=== PATIENT | female | born 1940 | race Caucasian/White ===

== ENCOUNTER → 2018-04-15 | Outpatient (CLI) | payer OTHER ==
[~2018-04-15] MED LIST: ASPIRIN EC325 M1 PO; ASPIRIN325 PO; KEFLEX500 MG PO; LEVEMIR SUBQ; LEVOTHYROXINE0.05 MG PO; LISINOPRIL20 MG PO; LOPRESSOR 50 MG50 M1; LOPRESSOR25 PO; LOVASTAT20 PO; MEDROL DOSPAK21 TA1 PO; METFORMIN HCL500 MG PO; MINOCIN100 MG PO; PAXIL30 MG PO; PLAVIX 75 MG TA75 M1 PO; PROAIR HFA8.5 GM; TOPROL XL50 MG PO; TRIAMTERENE-HC1 EAC1; VENTOLIN HFA INH8 GM IH; [UNRECOGNIZED DRUG - OTHER] PO; [UNRECOGNIZED DRUG - REMARK] PO
== END ==
LOC: M.RAD 08:51
DX: Z12.31 Encounter for screening mammogram for malignant neoplasm of breast (principal); I10 Essential (primary) hypertension; E78.00 Pure hypercholesterolemia, unspecified; E11.9 Type 2 diabetes mellitus without complications

== ENCOUNTER → 2019-02-12 | Outpatient (CLI) | payer OTHER | LOC: M.RAD 14:37 | DX: M17.12 Unilateral primary osteoarthritis, left knee (principal); M25.462 Effusion, left knee; M76.9 Unspecified enthesopathy, lower limb, excluding foot ==

== ENCOUNTER → 2019-05-05 | Outpatient (CLI) | payer OTHER | LOC: M.RAD 09:06 | DX: Z12.31 Encounter for screening mammogram for malignant neoplasm of breast (principal) ==

== ENCOUNTER → 2019-09-23 | Outpatient (CLI) | payer OTHER | LOC: M.RAD 13:58 | DX: M81.0 Age-related osteoporosis without current pathological fracture (principal); S32.10XA Unspecified fracture of sacrum, initial encounter for closed fracture; X58.XXXA Exposure to other specified factors, initial encounter; Y93.89 Activity, other specified; Y92.89 Other specified places as the place of occurrence of the external cause; Y99.8 Other external cause status ==

== ENCOUNTER 2019-10-22 15:07 | Inpatient (IN) | payer OTHER ==
[~2019-10-22] VITALS: Ht 157.5 cm; Wt 63.5 kg
--- NOTE | ~2019-10-22 | PROC ---
[address] [address] PROCEDURE REPORT Name: GERBER FOSTER Room: [address] IN M.R.#: [id number] Admission: 10/22/19 Attend Phys: Sean Cernshaw Discharge: Date of : 40 Report #: [id number] THIS REPORT FOR: //name// cc: Simon Davison Russell J. DO ~ THIS REPORT FOR: //name// For GI report, please see the Provation report in Perceptive 7 content. By: [facility]7Medical Records Staff ALECIA /TINO
--- NOTE | ~2019-10-22 | PROC ---
[address] [address] PROCEDURE REPORT Name: GERBER FOSTER Room: [address] IN M.R.#: [id number] Admission: 10/22/19 Attend Phys: Sean Crenshaw Discharge: Date of : 40 Report #: [id number] THIS REPORT FOR: //name// cc: Simon Davison Russell J. DO ~ THIS REPORT FOR: //name// For GI report, please see the Provation report in Perceptive 7 content. By: [facility]6Medical Records Staff ALECIA /TINO
[~2019-10-22 15:07] MED LIST changes: -LEVOTHYROXINE0.05 MG PO; +LEVOXYL50 MCG PO
[2019-10-22 15:15] VITALS: BP 198/105
[2019-10-22 15:40] LABS: URINE BILIRUBIN NEGATIVE (Negative); URINE BLOOD 3+ (Negative); URINE COLOR YELLOW; URINE GLUCOSE-RANDOM NEGATIVE (Negative); URINE KETONES NEGATIVE (Negative); URINE LEUKOCYTES-REFLEX TRACE (Negative); URINE NITRITE-REFLEX NEGATIVE (Negative); URINE PROTEIN NEGATIVE (Negative)
[2019-10-22 15:42] LABS: URINE CLARITY HAZY
[2019-10-22 15:54] LABS: ABSOLUTE BASOPHILS 0.1 thou/uL (0.0-0.2); ABSOLUTE EOSINOPHILS 0.2 thou/uL (0.0-0.7); ABSOLUTE LYMPHOCYTES 2.9 thou/uL (0.8-5.3); ABSOLUTE MONOCYTES 1.2 thou/uL (0.0-1.2); ABSOLUTE NEUTROPHILS 9.9 thou/uL (1.6-8.1); EOSINOPHILS 1.2 %; LYMPHOCYTES 20.5 %; MCH 31.4 pg (26.0-34.0); MCHC 33.3 g/dL (28.0-37.0); MCV 94.3 fL (80.0-100.0); MONOCYTES 8.1 %; MPV 9.7 fl. (7.2-11.1); NUCLEATED RBCS 0 /100WBC; PLATELET COUNT* 365 thou/uL (150-400); POLYS 69.2 %; RBC 3.82 mil/uL (4.20-5.00); RDW-CV 14.9 % (10.5-14.5); WBC 14.4 thou/uL (4.0-11.0)
[2019-10-22 16:01] LABS: BACTERIA-REFLEX None Seen /HPF (None Seen); SQUAMOUS 0-3 Few /LPF (0-3); URINE RBC 0-2 Rare /HPF (0-2); URINE WBC-REFLEX 0-5 Rare /HPF (0-5)
[2019-10-22 16:02] LABS: CASTS None Seen /LPF (None Seen); CRYSTALS None Seen /LPF (None Seen)
[2019-10-22 16:07] LABS: APTT 27.4 Seconds (25.0-31.3); PROTIME 10.2 Seconds (9.20-11.50)
[2019-10-22 16:10] LABS: CALCIUM 8.6 mg/dL (8.5-10.1); CREATININE 0.9 mg/dL (0.6-1.3); POTASSIUM 3.8 mmol/L (3.5-5.1)
[2019-10-22 16:15] LABS: ALBUMIN 3.5 g/dL (3.4-5.0); TOTAL BILIRUBIN 0.3 mg/dL (<0.1-1.0); TOTAL PROTEIN 7.3 g/dL (6.4-8.2)
--- NOTE | 2019-10-22 18:35 | NUR ---
ER ADMIT TO RM 210 PATIENT TO RM VIA CART TELEPHONE REPORT GIVEN PRIOR TO ARRIVAL PATIENT ORIENTED TO ROOM AND CALL LIGHT
[2019-10-22 18:39] VITALS: BP 147/92
[2019-10-22 20:00] VITALS: BP 157/77
--- NOTE | 2019-10-22 20:00 | NUR ---
RECEIVED REPORT AND ASSUMED CARE OF PT, ASSESSMENT COMPLETED. PT VERY [place] WITH HEARING AIDS IN. TELEMETRY ON SHOWING SR. SEE ADMISSION ASSESSMENT AND HX. WILL CONT TO MONITOR AND ASSIST NEEDED.
[2019-10-22 23:59] VITALS: BP 152/82
[2019-10-23] VITALS (7 sets, daily range): BP systolic 143–203; BP diastolic 75–93
[2019-10-23 04:26] LABS: ABSOLUTE BASOPHILS 0.1 thou/uL (0.0-0.2); ABSOLUTE EOSINOPHILS 0.3 thou/uL (0.0-0.7); ABSOLUTE LYMPHOCYTES 3.2 thou/uL (0.8-5.3); ABSOLUTE MONOCYTES 0.9 thou/uL (0.0-1.2); ABSOLUTE NEUTROPHILS 5.7 thou/uL (1.6-8.1); BASOPHILS 0.6 %; EOSINOPHILS 2.6 %; HEMATOCRIT 27.9 % (37.0-47.0); LYMPHOCYTES 31.2 %; MCH 31.3 pg (26.0-34.0); MCHC 33.1 g/dL (28.0-37.0); MCV 94.5 fL (80.0-100.0); MONOCYTES 9.3 %; MPV 9.7 fl. (7.2-11.1); NUCLEATED RBCS 0 /100WBC; POLYS 56.3 %; RBC 2.96 mil/uL (4.20-5.00); WBC 10.1 thou/uL (4.0-11.0)
[2019-10-23 04:45] LABS: HEMOGLOBIN 9.3 gm/dL (12.0-15.0); PLATELET COUNT* 284 thou/uL (150-400)
[2019-10-23 06:07] LABS: ALBUMIN 2.7 g/dL (3.4-5.0); CALCIUM 8.2 mg/dL (8.5-10.1); CREATININE 0.8 mg/dL (0.6-1.3); POTASSIUM 3.6 mmol/L (3.5-5.1); TOTAL BILIRUBIN 0.5 mg/dL (<0.1-1.0); TOTAL PROTEIN 5.6 g/dL (6.4-8.2)
--- NOTE | 2019-10-23 06:49 | NUR ---
AWAKE MOST OF NIGHT. VOICED NO COMPLAINTS. HAD 3 SM BM TONIGHT WITH BRIGHT RED BLEEDING NOTED. NOTED HGB DECREASED TO 9.6. TELEMETRY ON SHOWING SR. GAIT STEADY TO AND FROM BR. HS GOALS OF REST AND SAFETY ACHIEVED. HOURLY ROUNDING OBSERVED.
--- NOTE | 2019-10-23 09:28 | EKG ---
[place] [address] ELECTROCARDIOGRAM REPORT Name: GERBER FOSTER Room: [address] ADM IN M.R.#: [id number] Admission: 10/22/19 Attend Phys: Eric Weaver Discharge: Date of : 40 Date of Service: 10/22/19 1517 Report #: [id number] THIS REPORT FOR: //name// [facility] ED Test Date: 2019-10-22 Test Time: 15:17:27 Pat Name: GERBER FOSTER Department: Room: [facility] Gender: F Wrapper Layer: LUIS : 1940 Requested By: Melanie Montoya Order Number: [id number] MD: Maulik Davila Measurements Intervals [place] Rate: 101 P: 93 RI: 185 QRS: -34 QRSD: 93 T: 126 QT: 353 QTc: 458 Interpretive Statements Sinus tachycardia Probable left atrial enlargement Abnormal R-wave progression, early transition LVH with secondary repolarization abnormality Anterior Q waves, possibly due to LVH Compared to ECG 04/24/2016 12:11:53 Q waves now present Sinus rhythm no longer present Electronically Signed On 10-23-2019 9:26:34 CDT by Maulik Davila [email or web address] <ELECTRONICALLY SIGNED> By: Maulik Davila MD, [facility] 10/23/19 0926 1517 1517 Maulik Davila MD, [facility] /EPI
[2019-10-23 10:04] LABS: HEMATOCRIT 26.3 % (37.0-47.0); MCH 31.8 pg (26.0-34.0); MCV 93.6 fL (80.0-100.0); MPV 9.9 fl. (7.2-11.1); RBC 2.81 mil/uL (4.20-5.00); RDW-CV 14.7 % (10.5-14.5); WBC 9.6 thou/uL (4.0-11.0)
--- NOTE | 2019-10-23 11:02 | NUR ---
assumed pt care report received from nurse pt is aox4. hard of hearing. on ra. vss. pt denies pain. protonix drip infusing at 20 per hour as ordered. accucheck. pt is npo. gi consulted as ordered. egd scheduled at 1300. hgb lab 9.0. will continue to monitor lab. consent for egd obtained from pt at bedside. anesthesiologist consulted. will continue to monitor pt.
--- NOTE | 2019-10-23 15:06 | NUR ---
Pt lives at home alone and sons are supportive. Pt is [place]. Pt has hx of HH with [facility]. SW/CM to continue to follow to assist with safe dc planning.
--- NOTE | 2019-10-23 16:10 | NUR ---
PT RETURNED FROM EGD AT AROUND 1430. PT HELPED TO BEDSIDE COMMODE. NPO STATUS REMOVED. FRESH WATER PROVIDED. ELECTROLYTE GOLYTELY STARTED ORDERED. IV FLUID HANGED. IV ANTIBIOTIC HANGED. CONSENT FOR COLONOSCOPY OBTAINED FORM PATIENT. PT DENIES PAIN. NO BLEEDING NOTED. PROTONIX STOPPED ORDERED. ACCUCHECK. CALL LIGHT WITHIN REACH. WILL CONTINUE TO MONITOR
--- NOTE | 2019-10-23 17:41 | NUR ---
pt started passing bright red liquid stool post GI cocktail intake. this nurse is concerned about the patient's hgb and communicated to hospitalist about possible H&H order for tonight to monitor hgb. WIll continue to monitor pt
--- NOTE | 2019-10-23 17:43 | NUR ---
patient;s BP 190s. hydralizine given. will recheck BP
--- NOTE | 2019-10-23 19:01 | NUR ---
BP RECHECKED . SEE CHART
[2019-10-23 21:23] LABS: HEMATOCRIT 27.6 % (37.0-47.0); HEMOGLOBIN 9.2 gm/dL (12.0-15.0)
[2019-10-24] VITALS (7 sets, daily range): BP systolic 104–182; BP diastolic 52–94
[2019-10-24 09:09] LABS: ABSOLUTE BASOPHILS 0.1 thou/uL (0.0-0.2); ABSOLUTE EOSINOPHILS 0.3 thou/uL (0.0-0.7); ABSOLUTE NEUTROPHILS 4.2 thou/uL (1.6-8.1); BASOPHILS 0.9 %; EOSINOPHILS 3.5 %; HEMATOCRIT 23.5 % (37.0-47.0); HEMOGLOBIN 7.9 gm/dL (12.0-15.0); LYMPHOCYTES 35.2 %; MCH 31.8 pg (26.0-34.0); MCHC 33.6 g/dL (28.0-37.0); MCV 94.5 fL (80.0-100.0); MONOCYTES 11.5 %; MPV 9.5 fl. (7.2-11.1); NUCLEATED RBCS 0 /100WBC; PLATELET COUNT* 286 thou/uL (150-400); POLYS 48.9 %; RBC 2.49 mil/uL (4.20-5.00); WBC 8.7 thou/uL (4.0-11.0)
[2019-10-24 09:29] LABS: CALCIUM 7.8 mg/dL (8.5-10.1); CREATININE 0.9 mg/dL (0.6-1.3); POTASSIUM 3.6 mmol/L (3.5-5.1); TOTAL BILIRUBIN 0.3 mg/dL (<0.1-1.0); TOTAL PROTEIN 5.7 g/dL (6.4-8.2)
--- NOTE | 2019-10-24 12:44 | NUR ---
assumed pt care report received from nurse pt is aox4. on ra. kept npo for colonoscopy. vss. blood pressure medication given. pt left at 11:30 for colonoscopy. blood culture positive. result communicated to doctor at 1242.
--- NOTE | 2019-10-24 15:03 | NUR ---
pt back from colonoscopy. this nurse was given report that the pt had aspirated during procedure.vs taken. pt on 4 l nc. o2 saturation 97%. pt assited to the bedside commode. iv fluid administered as ordered. iv abx hanged. pt denies pain. call light within reach. food provided. diner ordered. will continue to monitor
--- NOTE | 2019-10-24 17:02 | NUR ---
wheezy sound heard in bilateral lungs. dr contacted. butt received. 2 view xray and stop fluid. fluid stopped. order for xray in. pt o2 level 96% on 4 l nc. will continue to monitor. pt has some chills but no fever.
--- NOTE | 2019-10-24 18:14 | NUR ---
provider contacted about chest xray result
--- NOTE | 2019-10-24 18:48 | NUR ---
NO MORE CHILLS. ZOSYN HANGED. MRSA SWAB OBTAINED. O2 SATURATION AT 98% ON 3 L NC NOW. TITRATING O2 DOWN
[2019-10-25] VITALS (10 sets, daily range): BP systolic 106–150; BP diastolic 54–84
--- NOTE | 2019-10-25 05:44 | NUR ---
ASSUMED PT CARE AT APPROX 1930. PT IS AWAKE AND ORINTED X4. BOARD MACHINE SET UP OPERATOR IS TRACING SR. ASSESSMENT DONE AND CHARTE. PT C/O NAUSEA AND LIGHTHEADEDNESS. BLOOD GLUCOSE 115, SYMPTOMS RELIEVED BY ZOFRAN GIVEN PER MAR.PT IS ABLE TO SLEEP SOME. NO ACUTE CHANGES OVERNIGHT. CALL LIGHT WITHIN REACH. HOURLY ROUNDING DONE FOR PT SAFETY.
[2019-10-25 05:50] LABS: HEMATOCRIT 21.1 % (37.0-47.0); MCH 31.3 pg (26.0-34.0); MCHC 33.3 g/dL (28.0-37.0); MCV 93.9 fL (80.0-100.0); MPV 9.2 fl. (7.2-11.1); NUCLEATED RBCS 0 /100WBC; PLATELET COUNT* 271 thou/uL (150-400); RBC 2.25 mil/uL (4.20-5.00); RDW-CV 14.8 % (10.5-14.5); WBC 20.7 thou/uL (4.0-11.0)
[2019-10-25 06:24] LABS: ALBUMIN 2.6 g/dL (3.4-5.0); CALCIUM 7.4 mg/dL (8.5-10.1); CREATININE 1.2 mg/dL (0.6-1.3); TOTAL BILIRUBIN 0.8 mg/dL (<0.1-1.0); TOTAL PROTEIN 5.5 g/dL (6.4-8.2)
[2019-10-25 06:27] LABS: POTASSIUM 2.9 mmol/L (3.5-5.1)
[2019-10-25 07:00] LABS: ABSOLUTE EOSINOPHILS 0.4 thou/uL (0.0-0.7); ABSOLUTE MONOCYTES 1.2 thou/uL (0.0-1.2); PLATELET ESTIMATE ADEQUATE
--- NOTE | 2019-10-25 11:10 | NUR ---
BLOOD CHECKED AT BEDSIDE WITH CLEMENTINA HARKINS.
--- NOTE | 2019-10-25 13:25 | NUR ---
WENT OVER AMA FORM WITH PATIENT AND ANSWERED ALL QUESTIONS. PT SIGNED AMA FORM AND WILL BE ESCORTED OFF HOSPITAL PROPERTY.
--- NOTE | 2019-10-25 13:51 | NUR ---
CONTACT PT'S SON DEVAN TO GIVE UPDATE PER REQUEST.
[2019-10-25 16:08] LABS: HEMATOCRIT 23.4 % (37.0-47.0); HEMOGLOBIN 7.9 gm/dL (12.0-15.0)
[2019-10-25 16:11] LABS: CALCIUM 7.4 mg/dL (8.5-10.1); CREATININE 1.4 mg/dL (0.6-1.3); POTASSIUM 3.7 mmol/L (3.5-5.1)
--- NOTE | 2019-10-25 17:27 | NUR ---
PT ATE ALL OF MEALS TODAY. REPLACED POTASSIUM PO AND RECHECK IS AT NORMAL LEVELS. PT HAD 1 UNIT PRBCS. WILL CONTINUE TO ASSESS.
[2019-10-26] VITALS (7 sets, daily range): BP systolic 132–161; BP diastolic 74–748
[2019-10-26 04:33] LABS: ABSOLUTE BASOPHILS 0.1 thou/uL (0.0-0.2); ABSOLUTE EOSINOPHILS 0.8 thou/uL (0.0-0.7); ABSOLUTE LYMPHOCYTES 2.6 thou/uL (0.8-5.3); ABSOLUTE MONOCYTES 1.3 thou/uL (0.0-1.2); ABSOLUTE NEUTROPHILS 9.6 thou/uL (1.6-8.1); BASOPHILS 0.5 %; EOSINOPHILS 5.7 %; HEMOGLOBIN 8.8 gm/dL (12.0-15.0); MCH 30.7 pg (26.0-34.0); MCHC 32.7 g/dL (28.0-37.0); MCV 93.9 fL (80.0-100.0); MONOCYTES 9.1 %; MPV 9.8 fl. (7.2-11.1); NUCLEATED RBCS 0 /100WBC; PLATELET COUNT* 301 thou/uL (150-400); POLYS 66.7 %; RBC 2.88 mil/uL (4.20-5.00); RDW-CV 16.2 % (10.5-14.5); WBC 14.4 thou/uL (4.0-11.0)
[2019-10-26 04:58] LABS: ALBUMIN 2.7 g/dL (3.4-5.0); CALCIUM 8.2 mg/dL (8.5-10.1); CREATININE 1.3 mg/dL (0.6-1.3); POTASSIUM 3.7 mmol/L (3.5-5.1); TOTAL PROTEIN 6.2 g/dL (6.4-8.2)
--- NOTE | 2019-10-26 05:42 | NUR ---
ASSUMED CARE OF PT AFTER REPORT AT 1930. PT A&OX4. VSS. PHYSICAL ASSESSMENT COMPLETED AND CHARTED. PT ON O2AT 2L NC-ON CONT PULSE OX. PT TRACING SR ON TELE. PT UP STANDBY TO BSC. PT DENIES ANY PAIN OR DISCOMFORT. FALL PRECAUTIONS IN PLACE. ABLE TO SLEEP WELL ON BED. CALL LIGHT WITHIN REACH.
[2019-10-26 10:37] LABS: CHOLESTEROL 107 mg/dL (<200); HDL CHOLESTEROL 40 mg/dL (>40); LDL CHOLESTEROL 48 mg/dL (<100); SERUM ASSESSMENT Clear; TC:HDL 2.7 Ratio (Not establshd); TRIGLYCERIDE 98 mg/dL (<150); VLDL 20 mg/dL (<40)
--- NOTE | 2019-10-26 12:08 | NUR ---
Pt discharging to home today, [facility]
--- NOTE | 2019-10-26 16:12 | 2DMMODE ---
[place] [address] 2 D/M-MODE ECHOCARDIOGRAM Name: GERBER FOSTER Room: [address] IN [facility]#: [id number] Admission: 10/22/19 Attend Phys: Eric Weaver Discharge: Date of : 40 Date of Service: 10/26/19 1610 Report #: [id number] THIS REPORT FOR: cc: Simon Davison,Simon Pelaez,Rashid Tapia MD [facility] ~ APPROVED REPORT Study performed: 10/26/2019 13:48:50 EXAM: Comprehensive 2D, Doppler, and color-flow Echocardiogram Patient Location: In-Patient Room #: 210 Status: routine BSA: 1.64 HR: 74 bpm BP: 158/83 mmHg Rhythm: NSR Other Information Study Quality: Good Indications CVA/TIA Echo Enhancing Agent Indication: Rule out Shunt Agent(s) / Amount(s) Used: Agitated Saline 10 cc 2D Dimensions IVSd: 13.45 (7-11mm) LVOT Diam: 20.04 (18-24mm) LVDd: 42.85 mm PWd: 10.15 (7-11mm) Ascending Ao: 36.73 (22-36mm) LVDs: 35.54 (25-40mm) Aortic Root: 37.00 mm Volumes Left Atrial Volume (Systole) LA ESV Index: 32.10 mL/m2 Aortic Valve AoV Peak Lester.: 1.32 m/s AO Peak Gr.: 6.97 mmHg LVOT Max P.61 mmHg AO Mean Gr.: 3.67 mmHg LVOT Mean P.[place] [address] 2 D/M-MODE ECHOCARDIOGRAM Name: CRISTIANGERBER ÓSCAR Room: [address] IN ..#: [id number] Admission: 10/22/19 Attend Phys: Eric Weaver Discharge: Date of : 40 Date of Service: 10/26/19 1610 Report #: [id number] LVOT Max V: 0.95 m/s AO V2 VTI: 25.46 cm LVOT Mean V: 0.59 m/s GLEN (VTI): 2.64 cm2 LVOT V1 VTI: 21.29 cm AI Van Zandt: 1.29 m/s2 AI PHT: 594.27 ms Mitral Valve E/A Ratio: 1.12 MV Decel. Time: 147.11 ms MV E Max Lester.: 1.20 m/s MV PHT: 42.66 ms MVA (PHT): 5.16 cm2 TDI E/Lateral E': 15.00 E/Medial E': 17.14 Medial E' Lester.: 0.07 m/s Lateral E' Lester.: 0.08 m/s Pulmonary Valve PV Peak Lester.: 0.85 m/s PV Peak Gr.: 2.89 mmHg Tricuspid Valve RAP Estimate: 5.00 mmHg TR Peak Gr.: 24.87 mmHg RVSP: 29.00 mmHg PA Pressure: 29.00 mmHg Left Ventricle The left ventricle is normal size. There is normal LV segmental wall motion. There is normal left ventricular wall thickness. Left ventricular systolic function is normal. The left ventricular ejection fraction is within the normal range. LVEF is 55%. The left ventricular diastolic function is normal. Right Ventricle The right ventricle is normal size. The right ventricular systolic function is normal. Atria The left atrium size is normal. The interatrial septum is intact with no evidence for an atrial septal defect. The right atrium size is normal. Aortic Valve The aortic valve is normal in structure. Mild aortic regurgitation. There is no [place] [address] 2 D/M-MODE ECHOCARDIOGRAM Name: GERBER FOSTER Room: [address] IN .R.#: [id number] Admission: 10/22/19 Attend Phys: Eric Weaver Discharge: Date of : 40 Date of Service: 10/26/19 1610 Report #: [id number] Mitral Valve The mitral valve is normal in structure. Mild to moderate mitral regurgitation. No evidence of mitral valve stenosis. Tricuspid Valve The tricuspid valve is normal in structure. Trace tricuspid regurgitation. No pulmonary hypertension. Pulmonic Valve The pulmonary valve is normal in structure. There is no pulmonic valvular regurgitation. Great Vessels The aortic root is normal in size. IVC is normal in size and collapses >50% with inspiration. Pericardium There is no pericardial effusion. <Conclusion> The left ventricle is normal size. There is normal left ventricular wall thickness. Left ventricular systolic function is normal. The left ventricular ejection fraction is within the normal range. LVEF is 55%. The left ventricular diastolic function is normal. The right ventricle is normal size. The left atrium size is normal. The aortic valve is normal in structure. Mild aortic regurgitation. There is no aortic valvular stenosis. The mitral valve is normal in structure. Mild to moderate mitral regurgitation. No evidence of mitral valve stenosis. The tricuspid valve is normal in structure. IVC is normal in size and collapses >50% with inspiration. There is no pericardial effusion. There is normal LV segmental wall motion. The interatrial septum is intact with no evidence for an atrial septal defect. <ELECTRONICALLY SIGNED> By: Rashid Soto MD, FACC 10/26/191609 09 09 Rashid Soto MD, FACC /INF
--- NOTE | 2019-10-26 17:13 | NUR ---
ASSUMED PT CARE REPORT RECEIVED FROM NURSE PT IS AOX4. ON 2 L NC. O2 SATURATION IS 99% ON 2 L. CONTINUOUS PULSE OX IN PLACE. PT OUT OF BED TO CHAIR WITH THIS NURSE ASSISTANCE. ACCUCHECK. NIH 0. PT LEFT FLOOR FOR MRI/MRA/ THEN PT CAME BACK. ID CONSULTED. MEDICATION CHANGED. SEE EMAR. IV LINES ARE PATENT. PT HAD A BOWEL MOVEMENT . NO BLOODY STOOL NOTED. HGB STABLE. PT WANTS TO STAY FOR ONE MORE DAY PER . PT SON NOTIFIED. OXYGEN TITRATED IN THE AFTERNOON. PT IS NOW ON ROOM AIR . LUNG SOUNDS CLEAR, NO SOB NOTED. PT WALKED IN HALLWAY WITH PHYSICAL THERAPY. PT STATES SHE FEELS BETTER TODAY. GOOD APPETITE. [facility] WILL CONTINUE TO MONITOR
[2019-10-27] VITALS (7 sets, daily range): BP systolic 154–161; BP diastolic 76–95
--- NOTE | 2019-10-27 06:15 | NUR ---
ASSUMED CARE OF PT AFTER REPORT AT 1930. PT A&OX4. VSS. PHYSICAL ASSESSMENT COMPLETED AND CHARTED. PT ON RA. PT TRACING SR ON TELE. PT UPADLIB TO RESTROOM. PT DENIES ANY PAIN OR DISCOMFORT. CALL LIGHT WITHIN REACH.
[2019-10-27 06:16] LABS: ABSOLUTE BASOPHILS 0.2 thou/uL (0.0-0.2); ABSOLUTE LYMPHOCYTES 2.4 thou/uL (0.8-5.3); ABSOLUTE MONOCYTES 1.1 thou/uL (0.0-1.2); ABSOLUTE NEUTROPHILS 11.1 thou/uL (1.6-8.1); BASOPHILS 1.2 %; EOSINOPHILS 6.1 %; HEMOGLOBIN 8.8 gm/dL (12.0-15.0); LYMPHOCYTES 15.4 %; MCH 31.8 pg (26.0-34.0); MCHC 33.8 g/dL (28.0-37.0); MPV 9.2 fl. (7.2-11.1); NUCLEATED RBCS 0 /100WBC; PLATELET COUNT* 356 thou/uL (150-400); POLYS 70.3 %; RBC 2.76 mil/uL (4.20-5.00); RDW-CV 15.8 % (10.5-14.5); WBC 15.7 thou/uL (4.0-11.0)
[2019-10-27 06:33] LABS: ALBUMIN 2.6 g/dL (3.4-5.0); CALCIUM 8.3 mg/dL (8.5-10.1); CREATININE 0.9 mg/dL (0.6-1.3); POTASSIUM 3.4 mmol/L (3.5-5.1); TOTAL BILIRUBIN 0.3 mg/dL (<0.1-1.0); TOTAL PROTEIN 6.1 g/dL (6.4-8.2)
--- NOTE | 2019-10-27 08:14 | CON ---
[address] [address] CONSULTATION Name: GERBER FOSTER Room: [address] IN M.R.#: [id number] Admission: 10/22/19 Attend Phys: Sean Crenshaw Discharge: Date of : 40 Report #: [id number] THIS REPORT FOR: //name// cc: Simon Davison Russell J. DO ~ THIS REPORT FOR: //name// CC: Simon Weaver DATE OF SERVICE: 10/26/2019 INFECTIOUS DISEASE CONSULTATION ATTENDING PHYSICIAN: Dr. Eric Weaver. REASON FOR EVALUATION: Positive blood culture with Gram-positive cocci, setting of aspiration pneumonia. HISTORY OF PRESENT ILLNESS: Chart reviewed, patient examined. 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 This prompted her admission. She did undergo evaluation including upper and lower endoscopies, which failed to identify a source. In the interim, initial chest x-ray was unremarkable; however, followup showed left basilar infiltrate and suspected aspiration pneumonitis. She is started on combination therapy. In addition to that, blood cultures were collected 1 out 2 with growth of gram-positive cocci identified as a coag-negative staph. She generally feels fine. She is still on supplemental oxygen, although claims she has not needed. She is scheduled to undergo MRI testing of her head as well as MRA evaluations. Denies any difficulty breathing at this point. She has not had a cough. No gastrointestinal related complaints. She has been afebrile. Current antimicrobials include piperacillin, tazobactam and vancomycin. ALLERGIES: None known. MEDICATIONS: Noted above the antibiotics, vancomycin and Zosyn. She is on metformin, lisinopril, paroxetine, levothyroxine, insulin glargine, atorvastatin, p.r.n. analgesics and antiemetics. PAST MEDICAL HISTORY: Includes above noted diabetes mellitus complicated by vasculopathy, previous stroke, history of asthma, hypertension, elevated cholesterol, fairly profound hearing loss. She had a previous splenectomy, hypothyroidism, [place] [address] CONSULTATION Name: GERBER FOSTER Room: [address]#: [id number] Admission: 10/22/19 Attend Phys: Sean Crenshaw Discharge: Date of : 40 Report #: [id number] SOCIAL HISTORY: Nonsmoker, no ethanol, no illicit drug use. FAMILY HISTORY: Noncontributory. REVIEW OF SYSTEMS: Otherwise, unremarkable 10-point review of systems. PHYSICAL EXAMINATION: GENERAL: She is pleasant, alert, cooperative. She has some profound hearing deficits. She is animated, appears to be somewhat chronically ill, undernourished. VITAL SIGNS: Temperature 98.3, pulse 80, respirations 18, blood pressure 158/83. SKIN: Warm, dry, no rashes. HEENT: Normocephalic. Extraocular muscles intact. She does have nasal cannula oxygen. NECK: Supple. LUNGS: Diminished breath sounds overall, few scattered crackles, primarily at the bases. HEART: Regular. I do not appreciate murmur. ABDOMEN: Soft, nontender, nondistended. EXTREMITIES: No cyanosis. GENITOURINARY: Deferred. RECTAL: Deferred. LABORATORY DATA: Prealbumin of 19.3. Most recent electrolytes; sodium 143, potassium 3.7, chloride 108, bicarbonate is 28, anion gap of 7, BUN and creatinine 8 and 1.3, glucose of 135. LFTs unremarkable. Albumin of 2.7, total protein 6.2. Estimated GFR of 40. CBC; white count of 14.4, H and H of 8.8 and 27.0, platelets of 301. She does have a monocytosis and a moderately elevated eosinophil count above the normal range at 800. PCR surveillance for MRSA was negative. Chest x-ray from 10/24/2019 showed left lung infiltrate. Blood culture 1 out 2 with growth of gram-positive cocci. ASSESSMENT: Pneumonitis in a patient that certainly, given her hospitalization procedure, is at risk. At this point, she is not apparently ill. Denies any primary respiratory complaints. Secondly, he has a positive blood culture. I think this is in all likelihood a false positive or contaminant who will pursue that diagnosis any further. We will go ahead and transition to oral antibiotics, follow her expectantly. Additional evaluation with DIETITIAN perspective is ongoing. <ELECTRONICALLY SIGNED> By: Delvin Florez MD 10/27/19 0814 [id number] Florez MD /nt
[2019-10-27] MEDS ORDERED: AUGMENTIN 875-1 EACH PO (11:29)
--- NOTE | 2019-10-27 12:46 | NUR ---
ASSUMED PT CARE REPORT RECEIVED FROM NURSE PT IS AOX4. ON RA. O2 SATURATION IS 95%. PT DENIES PAIN. NO COMPLAINT. TRACING SR ON RUNNER MAN. LUNG SOUNDS ARE CLEAR. IV LINES PATENT. DISCHARGE ORDERED. PT STATED THAT HE IS READY TO GO HOME. PATIENT'S SON WILL QUALITY FACILITATOR THIS AFTERNOON. ACCUCHECK. METFORMIN GIVEN. CALL LIGHT AT REACH. WILL CONTINUE TO MONITOR PT
--- NOTE | 2019-10-27 12:48 | NUR ---
FAXED REFERRAL AND ORDERS TO [facility]. CONFIRMED WITH ALEKSANDRA/ CHLOE THAT SHE RECEIVED AND PATIENT DISCHARGING TODAY, 10/27/19 TO HER HOME IN [place], [place]. SPOKE TO DEVAN FOSTER (SON) [phone] ABOUT [facility] CONTACTING PATIENT AND VERIFYING WITH HIM ALSO ABOUT TIME/DAY THEY PLAN ON SEEING PATIENT. HE SAID PATIENT IS HARD OF HEARING AND FOR SERVICE TO KNOCK ON WINDOW FAR LEFT OF HER DUPLEX IF PATIENT DOESN'T ANSWER DOOR. SON WILL KILN CHARGER PATIENT TODAY BETWEEN 14:30-16:30 AND WILL TAKE PATIENT TO HER OWN HOME. NOTIFIED NURSING UN[facility] OF HOME HEALTH SERVICE AND TRANSPORTATION ARRANGEMENTS. [facility] [phone]; [phone]
--- NOTE | 2019-10-27 16:53 | NUR ---
IV REMOVED AND HEART MONITOR RETRIEVED. PT PICKED UP FROM ER ENTRANCE BY HER SON DEVAN. PT LEFT FLOOR BY JOYA ACCOMPANIED BY THIS NURSE. BELONGINGS BROUGHT ALONG
--- NOTE | 2019-10-28 11:08 | PATH ---
[address] [address] PATHOLOGY RPT PROCEDURE Name: GERBER RAO ÓSCAR Room: [address] IN M.R.#: [id number] Admission: 10/22/19 Date of : 40 Discharge: 10/27/19 Report #: [id number] Path Case #: [id number] [facility] Accession Number: [id number] . 01 Material submitted: . colon - ASCENDING COLON POLYP. Modifiers: ascending . 01 Clinical history: . None provided . 02 Diagnosis: Ascending colon polyp: - Benign colonic inflammatory pseudopolyp with erosion, negative for granulomas, viral inclusions and dysplasia. (CLARITA/db; 10/27/2019) LBQ 10/27/2019 1120 Local . 02 Electronically signed: . Brock Santizo MD, Pathologist NPI- [id number] . 01 Gross description: . The specimen is received in formalin, labeled "Rao, Gerber, ascending colon polyp" and consists of a fragment chang tissue measuring 0.3 x 0.3 x 0.2 cm which is entirely submitted in A1. (SDY; 10/26/2019) SYU/SYU 10/26/2019 1248 Local . 02 Pathologist provided ICD-10: K63.5 . 02 CPT . 706714 Specimen Comment: A courtesy copy of this report has been sent to [phone] Specimen Comment: [id number] Specimen Comment: Report sent to Specimen Comment: A duplicate report has been generated due to demographic updates. Performed at: [address] [facility] [id number] [facility] [address], [place], [place] [id number] MD Simon Hall MD Phone: [phone] Performed at: [facility] [place] [address], [place], [place] [id number] MD Brock Santizo MD Phone: [phone]
--- NOTE | 2019-10-30 10:43 | CON ---
[address] [address] CONSULTATION Name: GERBER FOSTER Room: [address] IN M.R.#: [id number] Admission: 10/22/19 Attend Phys: Sean Crenshaw Discharge: 10/27/19 Date of : 40 Report #: [id number] THIS REPORT FOR: //name// cc: Simon Davison Russell J. DO ~ THIS REPORT FOR: //name// CC: Simon Weaver DATE OF SERVICE: 10/23/2019 HISTORY OF PRESENT ILLNESS: This is a pleasant 78-year-old female with past medical history significant for hypertension, stroke, diabetes who is presenting for evaluation of black tarry stool. The patient had 3 episodes yesterday. Since then, she has had no bowel movements today. The patient reports stings of red blood associated with it. The patient reports that stool was moderate in volume, colored, the toilet bowl red in color. She denies any associated abdominal pain, any nausea, vomiting and diarrhea. Few episodes of hematemesis. The patient does not report any weight loss and has not had any EGD or colonoscopy in the past. PAST MEDICAL HISTORY: Diabetes, stroke, hypercholesterolemia. PAST SURGICAL HISTORY: Remote history of splenectomy. SOCIAL HISTORY: The patient denies alcohol, smoking or recreational drug use. FAMILY HISTORY: No family history of colon cancer or August related neoplasia. REVIEW OF SYSTEMS: Comprehensive 10-point review of systems is negative except for what was mentioned in the HPI. PHYSICAL EXAMINATION: GENERAL: The patient is alert, awake, oriented x 3. HEENT: Pupils are equal, round, reactive to light and accommodation. Mucous membranes are moist. There is no congestion. LUNGS: Clear to auscultation bilaterally. CARDIOVASCULAR: Rate and rhythm regular, S1, S2 present. ABDOMEN: Soft. There is no distention, guarding or rigidity. EXTREMITIES: Warm, well perfused. There is no edema. SKIN: Warm and dry. LABORATORY DATA: Hemoglobin 9.2, hematocrit 26.3, platelet count 299, WBC count 9.6. Sodium 140, potassium 3.6, chloride 106, bicarb 23, BUN 11, creatinine 0.8, total bilirubin 0.5, AST 16, ALT 13 and alk phos 76. INR 1.0. [place] [address] CONSULTATION Name: GERBER FOSTER Room: [address]#: [id number] Admission: 10/22/19 Attend Phys: Sean Crenshaw Discharge: 10/27/19 Date of : 40 Report #: [id number] IMAGING: CT angio abdomen fails to demonstrate any active bleeding. ASSESSMENT AND PLAN: Pleasant 78-year-old female presenting with black tarry stools. No prior history of EGD or colonoscopy in the past. The patient currently is on Plavix. I would recommend Protonix 80 mg bolus followed by 8 mg per hour drip. Maintain adequate peripheral access. Keep the patient n.p.o. for possible EGD today. Further recommendations will be based on the results of the EGD. Thank you for this consultation. <ELECTRONICALLY SIGNED> By: Ambrose Elias MD 10/30/19 1043 1400 [id number] Elias MD /nt
== END 2019-10-27 16:30 | disposition home health service (06) | DRG 377 ==
LOC: M.ERS 15:07 → M.TBA-ER 17:00 → M.2W 17:00
PROVIDERS: Internal Medicine; Internal Medicine Gastroenterology; Nurse Practitioner Family; Psychiatry & Neurology Neurology; ADMIT Internal Medicine
PROC: 0DJ08ZZ Inspection of Upper Intestinal Tract, Via Natural or Artificial Opening Endoscopic (ICD-10-PCS; principal; 2019-10-23)
PROC: 0DBK8ZZ Excision of Ascending Colon, Via Natural or Artificial Opening Endoscopic (ICD-10-PCS; 2019-10-24)
PROC: 30233N1 Transfusion of Nonautologous Red Blood Cells into Peripheral Vein, Percutaneous Approach (ICD-10-PCS; 2019-10-25)
DX: K92.1 Melena (principal); J18.9 Pneumonia, unspecified organism; D62 Acute posthemorrhagic anemia; E44.0 Moderate protein-calorie malnutrition; R65.10 Systemic inflammatory response syndrome (SIRS) of non-infectious origin without acute organ dysfunction; K57.30 Diverticulosis of large intestine without perforation or abscess without bleeding; D12.2 Benign neoplasm of ascending colon; J45.909 Unspecified asthma, uncomplicated; I10 Essential (primary) hypertension; K64.9 Unspecified hemorrhoids; E78.00 Pure hypercholesterolemia, unspecified; E03.9 Hypothyroidism, unspecified; K52.9 Noninfective gastroenteritis and colitis, unspecified; E11.69 Type 2 diabetes mellitus with other specified complication; E78.5 Hyperlipidemia, unspecified; J32.0 Chronic maxillary sinusitis; Z68.25 Body mass index [BMI] 25.0-25.9, adult; Z79.84 Long term (current) use of oral hypoglycemic drugs; Z79.899 Other long term (current) drug therapy; Z79.4 Long term (current) use of insulin; Z86.73 Personal history of transient ischemic attack (TIA), and cerebral infarction without residual deficits; Z85.3 Personal history of malignant neoplasm of breast; Z90.81 Acquired absence of spleen; Z83.3 Family history of diabetes mellitus

== ENCOUNTER 2020-10-12 06:24 | Inpatient (IN) | payer OTHER ==
[~2020-10-12] VITALS: Ht 157.5 cm; Wt 68.8 kg
--- NOTE | ~2020-10-12 | EEG ---
[address] [address] EEG STUDY REPORT Name: GERBER FOSTER Room: [address] IN M.R.#: [id number] Admission: 10/12/20 Attend Phys: Wicho Schwartz MD Discharge: Date of : 40 Report #: [id number] THIS REPORT FOR: cc: Simon Davison Russell J. DO Khosla, Parveen K. MD ~ DATE OF SERVICE: 10/17/2020 This patient is being evaluated for seizure. EEG was done by placing the electrode by standard 10-20 system of electrode placement. Both referential and sequential montages were used for recording. Background activity in this patient's EEG is about 7 Hz and 30 microvolt. On the right side either, the patient has a lot of artifact or an epileptiform activity is present. The patient appeared to be drowsy during part of the EEG and that is associated with bilateral slowing. Photic stimulation is unremarkable. IMPRESSION: This is an abnormal EEG because it is a poorly formed. That is a nonspecific abnormality, which can occur with encephalopathy, effect of psychotropic medication, dementia, etc. On the right side either, a lot of artifact is present or the patient has epileptiform activity there. It might be desirable to repeat this EEG to compare after a few days. Thank you very much for this referral. By: 1825 1848MD jayjay Estrada
--- NOTE | ~2020-10-12 | CON ---
[address] [address] CONSULTATION Name: GERBER FOSTER Room: [address] ADM IN M.R.#: [id number] Admission: 10/12/20 Attend Phys: Wicho Schwartz MD Discharge: Date of : 40 Report #: [id number] THIS REPORT FOR: cc: Simon Davison Russell J. DO Khosla, Parveen K. MD ~ DATE OF SERVICE: 10/12/2020 HISTORY OF PRESENT ILLNESS: This is a 79-year-old female patient who was evaluated by me for CVA. I discussed the patient with Emergency Room physician. I tried to take the history from the patient. Emergency Room doctor and the medical student also try to take history from the patient. This patient is extremely hard of hearing. She also does not provide a good history at all. She is also a very poor historian. I reviewed the records in the computer in this patient. It looks like in 2014, she was admitted with an episode suggestive of TIA. In 2016, she was admitted with what looks like a stroke in the left cerebral hemisphere, which involved frontoparietal as well as occipital area as per the report. She needed speech and occupational therapy. I do not know whether she was left with hemianopsia at that time after the stroke or not. The patient is a very poor historian. Today, she came to the hospital for dizziness. Dizziness became better, but the ER doctor suspected possibility of hemianopsia because of just the examination, which he can carry out. He was not very certain because the patient was not able to cooperate with any examination. But visual chen looked abnormal to him. I came to see the patient and similar things happened with me. I spent a lot of time to get anything from history in this patient and she just says that she woke up with dizziness. When I asked her if she has any visual defect, she says no. But then she starts saying things, which is not relevant to the present conversation. I was finally able to reach the patient's family and they gave this history that she had a stroke that did affect her speech and cognition, but she was able to live by herself. She can tell me for sure if the patient suffered from any hemianopsia or not. They do not know what blood thinner she was taking. They did not remember the patient's family physician's name. A 14-point review of systems attempted, but that is all I can get. She has a history of diabetes and hypothyroidism. B12 was low when it was last checked. She is complaining of pretty severe headache on the right side. She has a history of breast carcinoma and she has hearing loss. PAST MEDICAL HISTORY: Positive for stroke and in fact more than one stroke according to family. There is 1 documentation of stroke here in 2016 and looks like it was a large stroke, which involved the left frontoparietal [place] [address] CONSULTATION Name: GERBER FOSTERU Room: [address] IN M.R.#: [id number] Admission: 10/12/20 Attend Phys: Wicho Schwartz MD Discharge: Date of : 40 Report #: [id number]. FAMILY HISTORY: Negative for early age stroke. SOCIAL HISTORY: She has been to the hospital multiple times. She lives by herself, but the family help. PHYSICAL EXAMINATION: Her examination is extremely limited. I tried to convey instructions to her. She did not understand. I tried to do it without mask after standing more than 6 feet away and she still could not understand the instruction. She keeps talking about her right sided headache. Looking at the record, it looks like she had headache in the past also. She does have visual defect, but I do not know how much is old and how much is new and where the visual defect is. She does appear to have neglect on the left side, but rest of the neurological examination is not possible. Blood pressure is 161/105, respirations 18, pulse is 104. LABORATORY DATA: Indicated normal white count. No atrial fibrillation has been documented. IMPRESSION: 1. This patient had prior cerebrovascular accident and most likely more than one cerebrovascular accident. At one time, her left frontoparietal and occipital lobe was involved. This time, she appeared to have another cerebrovascular accident in the right posterior tibial distribution affecting the right occipital lobe. That is what shown up on the perfusion images, but unfortunately perfusion images are inherently inaccurate in the light of prior stroke, and even have difficulty distinguishing that from multiple other etiologies. If she is having strokes in such a rapid succession, she needs pretty extensive workup. I will suggest doing an workup to look for atrial fibrillation in this patient. With so many strokes and at least 2 strokes in the posterior cerebral artery distribution, which is a common site for embolization, we need to exclude the possibility of cardioembolization. If it is an embolic stroke that tend to become hemorrhagic spontaneously pretty often and she needs to be closely watched for that. I will suggest doing an MRI in this patient. That will be the best thing to do in this patient who has a very poor history and very poor examination and who had multiple strokes in the past. MRI will be to document that she has a stroke in the right posterior cerebral artery distribution and it was a recent stroke. If that is the case, this patient need to be closely monitored for hemorrhagic conversion because of embolic stroke tend to become hemorrhagic and this may [address] [place] [place] [address] CONSULTATION Name: GERBER FOSTER Room: [address] IN ..#: [id number] Admission: 10/12/20 Attend Phys: Wicho Schwartz MD Discharge: Date of : 40 Report #: [id number] very well be embolic stroke. If MRI shows more than one stroke that will be even stronger case for embolization from the heart and even more extensive workup should be done and if that is the case I will suggest an implantable device to monitor her for 1 year. Presently, we can continue aspirin and Plavix. I will schedule the MRI tomorrow and that way we can look at the MRI to see if the patient has any hemorrhage in the stroke also which would be contraindication for any antithrombotic therapy. If MRI is not approved, then I will suggest doing a CT scan of the head on Saturday. Embolic stroke tend to become hemorrhagic, typically on the third day and so the imaging study we will do either tomorrow or day after. Presently, it is not documented that the patient's stroke is embolic, but that is suspected and presently there is no evidence for any hemorrhagic conversion and we will continue combination of aspirin and Plavix in this patient. The patient will probably need another rehabilitation sessions she has been to the hospital multiple times. Her vitamin B12 was low, that will raise her homocysteine level. We will recheck the vitamin B12 in this patient. She had a sed rate, ALEISHA in the past and I do not think there is any need to repeat that. She already had a CT angiogram of the head and neck, there is no need to do a carotid Doppler in this patient. Thank you very much for this referral. I spent more than 50 minutes of time taking care of this patient today counseling and coordinating care by talking to multiple people as summarized in the consult. By: 1411 [id number] Osorio MD /nt
[~2020-10-12 06:24] MED LIST changes: +AUGMENTIN 875-1 EACH PO
[2020-10-12 06:48] LABS: ABSOLUTE BASOPHILS 0.1 thou/uL (0.0-0.2); ABSOLUTE EOSINOPHILS 0.2 thou/uL (0.0-0.7); ABSOLUTE LYMPHOCYTES 1.9 thou/uL (0.8-5.3); ABSOLUTE MONOCYTES 1.2 thou/uL (0.0-1.2); ABSOLUTE NEUTROPHILS 6.3 thou/uL (1.6-8.1); BASOPHILS 1.1 %; EOSINOPHILS 2.3 %; HEMATOCRIT 40.3 % (37.0-47.0); HEMOGLOBIN 13.3 gm/dL (12.0-15.0); LYMPHOCYTES 19.3 %; MCH 31.7 pg (26.0-34.0); MCHC 33.1 g/dL (28.0-37.0); MCV 95.7 fL (80.0-100.0); MONOCYTES 11.9 %; MPV 9.1 fl. (7.2-11.1); NUCLEATED RBCS 0 /100WBC; PLATELET COUNT* 388 thou/uL (150-400); POLYS 65.4 %; RBC 4.22 mil/uL (4.20-5.00); RDW-CV 14.9 % (10.5-14.5); WBC 9.7 thou/uL (4.0-11.0)
[2020-10-12 06:53] LABS: CALCIUM 9.1 mg/dL (8.5-10.1); CREATININE 0.9 mg/dL (0.6-1.3)
[2020-10-12 07:00] LABS: APTT 25.5 Seconds (25.0-31.3); PROTIME 10.3 Seconds (9.20-11.50)
[2020-10-12 07:09] LABS: ALBUMIN 3.4 g/dL (3.4-5.0); TOTAL BILIRUBIN 0.3 mg/dL (<0.1-1.0); TOTAL PROTEIN 7.5 g/dL (6.4-8.2)
--- NOTE | 2020-10-12 10:07 | EKG ---
[place] [address] ELECTROCARDIOGRAM REPORT Name: GERBER FOSTER Room: [place] [address] ADM IN M.R.#: [id number] Admission: 10/12/20 Attend Phys: Wicho Schwartz, Discharge: Date of : 40 Date of Service: 10/12/20 0637 Report #: [id number] THIS REPORT FOR: //name// [facility] ED Test Date: 2020-10-12 Test Time: 06:37:16 Pat Name: GERBER FOSTER Department: Room: [facility] Gender: F Wire Hanger: HECTOR : 1940 Requested By: Oanh Diaz Order Number: [id number] MD: Maulik Davila Measurements Intervals [place] Rate: 81 P: -41 PA: 161 QRS: -37 QRSD: 94 T: 134 QT: 360 QTc: 418 Interpretive Statements Sinus rhythm LVH with secondary repolarization abnormality Anterior Q waves, possibly due to LVH Compared to ECG 10/22/2019 15:17:27 Sinus tachycardia no longer present Electronically Signed On 10-12-2020 10:07:25 CDT by Maulik Davila [email or web address] <ELECTRONICALLY SIGNED> By: Maulik Davila MD, FACC 10/12/20 1007 0637 0637 Maulik Davila MD, FAC /EPI
[2020-10-12 11:22] VITALS: BP 161/105
[2020-10-12 13:09] LABS: CHOLESTEROL 156 mg/dL (<200); HDL CHOLESTEROL 44 mg/dL (>40); LDL CHOLESTEROL 85 mg/dL (<100); TC:HDL 3.5 Ratio (Not establshd); TRIGLYCERIDE 139 mg/dL (<150); VLDL 28 mg/dL (<40)
[2020-10-12 13:12] LABS: SERUM ASSESSMENT Clear
[2020-10-12 15:48] VITALS: BP 146/81
--- NOTE | 2020-10-12 16:39 | 2DMMODE ---
[place] [address] 2 D/M-MODE ECHOCARDIOGRAM Name: GERBER FOSTER Room: [address] IN .R.#: [id number] Admission: 10/12/20 Attend Phys: Wicho Schwartz, Discharge: Date of : 40 Date of Service: 10/12/20 1639 Report #: [id number] THIS REPORT FOR: cc: Simon Davison,Simon Amaral,Maulik Bass MD [facility] ~ APPROVED REPORT Study performed: 10/12/2020 15:33:13 EXAM: Limited 2D, Doppler, and color-flow Echocardiogram with IV bubble study Patient Location: In-Patient Status: routine BSA: 1.57 HR: 108 bpm Rhythm: NSR Other Information Study Quality: Good Indications CVA/TIA Echo Enhancing Agent Indication: Rule out Shunt Agent(s) / Amount(s) Used: Agitated Saline 10 cc Volumes Left Atrial Volume (Systole) LA ESV Index: 30.00 mL/m2 Tricuspid Valve RAP Estimate: 5.00 mmHg TR Peak Gr.: 11.88 mmHg RVSP: 16.00 mmHg PA Pressure: 16.00 mmHg Left Ventricle The left ventricle is normal size. Mild concentric left ventricular hypertrophy. The left ventricular systolic function is normal. The left ventricular ejection fraction is within the normal range. LVEF is 55-60%. [place] [address] 2 D/M-MODE ECHOCARDIOGRAM Name: GERBER FOSTER Room: [address] IN .R.#: [id number] Admission: 10/12/20 Attend Phys: Wicho Schwartz, Discharge: Date of : 40 Date of Service: 10/12/20 1639 Report #: [id number] Right Ventricle The right ventricle is normal size. The right ventricular systolic function is normal. Atria Left atrium is mildly dilated. Doppler suggests right to left interatrial shunt. The right atrium size is normal. Aortic Valve The aortic valve is normal in structure. Mild aortic regurgitation. There is no aortic valvular stenosis. Mitral Valve The mitral valve is normal in structure. Mild mitral annular calcification. Trace mitral regurgitation. No evidence of mitral valve stenosis. Tricuspid Valve The tricuspid valve is normal in structure. Trace tricuspid regurgitation. No pulmonary hypertension. Pulmonic Valve The pulmonary valve is normal in structure. Great Vessels The aortic root is normal in size. IVC is normal in size and collapses >50% with inspiration. Pericardium There is no pericardial effusion. <Conclusion> Mild concentric left ventricular hypertrophy. LVEF is 55-60%. Left atrium is mildly dilated. Mild aortic regurgitation. Doppler suggests right to left interatrial shunt. <ELECTRONICALLY SIGNED> By: Maulik Davila MD, FAC 10/12/20 1639 1639 38 Maulik Davila MD, [facility] /INF
[2020-10-12] MEDS ORDERED: TOPROL XL100 MG PO (19:37)
[2020-10-12] MEDS ORDERED: DESYREL150 MG PO (19:37)
[2020-10-12 20:49] VITALS: BP 172/86
[2020-10-13 00:43] VITALS: BP 163/93
[2020-10-13 03:06] LABS: GLYCOHEMOGLOBIN (HGB A1C) 6.3 % (4.8-5.6)
[2020-10-13 04:14] LABS: HEMATOCRIT 38.8 % (37.0-47.0); HEMOGLOBIN 12.8 gm/dL (12.0-15.0); MCH 31.5 pg (26.0-34.0); MCHC 33.1 g/dL (28.0-37.0); MCV 95.1 fL (80.0-100.0); MPV 9.3 fl. (7.2-11.1); RBC 4.08 mil/uL (4.20-5.00); RDW-CV 14.8 % (10.5-14.5); WBC 11.4 thou/uL (4.0-11.0)
[2020-10-13 04:27] LABS: CALCIUM 8.6 mg/dL (8.5-10.1); CREATININE 0.9 mg/dL (0.6-1.3); POTASSIUM 3.4 mmol/L (3.5-5.1)
[2020-10-13 04:32] VITALS: BP 163/82
[2020-10-13 13:29] VITALS: BP 189/100
[2020-10-13 15:44] LABS: URINE BILIRUBIN NEGATIVE (Negative); URINE BLOOD 1+ (Negative); URINE COLOR YELLOW; URINE GLUCOSE-RANDOM NEGATIVE (Negative); URINE KETONES 1+ (Negative); URINE LEUKOCYTES-REFLEX 1+ (Negative); URINE NITRITE-REFLEX NEGATIVE (Negative); URINE PROTEIN 2+ (Negative); URINE UROBILINOGEN 0.2 E.U./dl (0.2-1.0)
[2020-10-13 15:45] LABS: URINE CLARITY HAZY
[2020-10-13 16:00] VITALS: BP 181/108
[2020-10-13 16:03] LABS: CASTS None Seen /LPF (None Seen); CRYSTALS None Seen /LPF (None Seen); SQUAMOUS 0-3 Few /LPF (0-3); URINE RBC 3-10 Few /HPF (0-2); URINE WBC-REFLEX 6-15 Few /HPF (0-5)
[2020-10-13 20:22] VITALS: BP 185/76
[2020-10-13 23:50] VITALS: BP 149/78
[2020-10-14 04:26] LABS: HEMATOCRIT 37.6 % (37.0-47.0); HEMOGLOBIN 12.4 gm/dL (12.0-15.0); MCH 30.6 pg (26.0-34.0); MCV 92.8 fL (80.0-100.0); MPV 9.3 fl. (7.2-11.1); RBC 4.05 mil/uL (4.20-5.00); RDW-CV 14.6 % (10.5-14.5)
[2020-10-14 04:38] LABS: CALCIUM 8.2 mg/dL (8.5-10.1); CREATININE 0.8 mg/dL (0.6-1.3)
[2020-10-14 04:47] VITALS: BP 179/96
[2020-10-14 08:00] VITALS: BP 184/98
[2020-10-14 12:00] VITALS: BP 208/112
--- NOTE | 2020-10-14 15:38 | CON ---
[address] [address] CONSULTATION Name: GERBER FOSTER Room: [address] ADM IN M.R.#: [id number] Admission: 10/12/20 Attend Phys: Wicho Schwartz MD Discharge: Date of : 40 Report #: [id number] THIS REPORT FOR: cc: Simon Davison Russell J. DO Blick, David R. MD [facility] ~ DATE OF SERVICE: 10/14/2020 CARDIOLOGY CONSULTATION HISTORY OF PRESENT ILLNESS: The patient is a 79-year-old white female who I was asked to see in the hospital today after she suffered a stroke. The patient is currently aphasic. There are no family members available. The history is obtained from the old chart. The patient has had several hospitalizations here at [facility] in the past. She was actually admitted here in 2014 for stroke with slurred speech. She has a history of diabetes and hyperlipidemia. She was admitted here in 2016 with confusion. She was here in 10/2019 with a lower GI bleed and was found to have a polyp. She apparently was on Plavix at that time. The patient was brought to the Emergency Room 3 days ago by paramedics. She complained of being lightheaded and had stumbled due to dizziness. She apparently fell to the ground. She denied any visual changes. She is very hard of hearing. After she was admitted, she was seen by Neurology. She is felt to have a TIA. The patient was found to have a large acute infarction in the right occipital area. She apparently was treated with t-PA. Cardiology consultation was requested to evaluate for possible emboli. PAST MEDICAL HISTORY: She has had previous hypertension, hyperlipidemia, diabetes, history of breast cancer, previous splenectomy. MEDICATIONS: On admission consisted of lovastatin, Paxil, metformin, metoprolol, insulin, lisinopril, Plavix. ALLERGIES: She had no known drug allergies. SOCIAL HISTORY: She is a nonsmoker. REVIEW OF SYSTEMS: Cannot be obtained. PHYSICAL EXAMINATION: GENERAL: Revealed an elderly, frail-appearing female, lying in bed. She appeared in no distress. Her eyes were open, but she would not respond. VITAL SIGNS: She had a blood pressure of 170/80, pulse is 90. She is afebrile. HEENT: She is anicteric. Conjunctivae pink. Mucous membranes are moist. NECK: Veins do not appear distended[place] [address] CONSULTATION Name: GERBER FOSTER Room: [address]#: [id number] Admission: 10/12/20 Attend Phys: Wicho Schwartz MD Discharge: Date of : 40 Report #: [id number] CHEST: Clear to auscultation. CARDIOVASCULAR: Regular rate and rhythm, grade 2 systolic ejection murmur. ABDOMEN: Soft. EXTREMITIES: Had no edema. NEUROLOGIC: She had a left flaccid paralysis. She would not respond to painful stimuli. She had a right gaze noted. RADIOLOGICAL DATA: ECG shows sinus rhythm, left ventricular hypertrophy, repolarization changes. Workup so far during this hospitalization included an echocardiogram that showed ejection fraction 60%, evidence of a right to left interatrial shunt suggested of a PFO or small secundum ASD. Left atrium appeared dilated. There was left ventricular hypertrophy. The patient had a portable chest x-ray on admission that showed cardiomegaly, otherwise unremarkable. She had an MRI of the brain with contrast that showed a large recent infarction involving the right temporal lobe. Previous carotid MRI done a year ago showed no significant carotid stenosis. LABORATORY WORK: Sodium 135, potassium 3.0, creatinine 0.8. Troponin less than 0.06. Cholesterol 156, triglyceride 139, HDL 44, LDL 85. Her white blood cell count 13.0, hemoglobin 12.4. IMPRESSION AND RECOMMENDATIONS: 1. Stroke. The patient currently on Plavix. 2. Diabetes. 3. Hyperlipidemia. The patient is on a statin drug. 4. Hypertension. The patient is on ABHINAV inhibitor. 5. Evidence of patent foramen ovale. If the patient continues to have a transient ischemic attack despite medical therapy, would consider closure. I would recommend sending the patient home with a cardiac rehab nurse to look for atrial fibrillation. <ELECTRONICALLY SIGNED> By: Maulik Davila MD, FACC 10/14/20 1538 1040 1250Dacassidy Davila MD, FAC /nt
[2020-10-14 16:12] VITALS: BP 168/92
[2020-10-14 23:49] VITALS: BP 182/104
[2020-10-15 04:10] VITALS: BP 174/97
[2020-10-15 04:11] LABS: HEMATOCRIT 38.1 % (37.0-47.0); HEMOGLOBIN 12.3 gm/dL (12.0-15.0); MCH 30.6 pg (26.0-34.0); MCHC 32.3 g/dL (28.0-37.0); MCV 94.8 fL (80.0-100.0); MPV 8.9 fl. (7.2-11.1); RBC 4.02 mil/uL (4.20-5.00); WBC 15.8 thou/uL (4.0-11.0)
[2020-10-15 04:23] LABS: CALCIUM 8.9 mg/dL (8.5-10.1); CREATININE 0.8 mg/dL (0.6-1.3); POTASSIUM 3.8 mmol/L (3.5-5.1)
[2020-10-15 09:00] VITALS: BP 180/102
[2020-10-15 12:00] VITALS: BP 183/100
[2020-10-15 16:00] VITALS: BP 191/101
[2020-10-15 20:00] VITALS: BP 187/99
[2020-10-16] VITALS: BP 183/89
[2020-10-16 03:37] LABS: HEMATOCRIT 34.9 % (37.0-47.0); HEMOGLOBIN 11.3 gm/dL (12.0-15.0); MCH 30.6 pg (26.0-34.0); MCHC 32.3 g/dL (28.0-37.0); MCV 94.8 fL (80.0-100.0); MPV 8.7 fl. (7.2-11.1); RBC 3.68 mil/uL (4.20-5.00); RDW-CV 14.5 % (10.5-14.5); WBC 16.9 thou/uL (4.0-11.0)
[2020-10-16 04:00] VITALS: BP 182/104
[2020-10-16 04:07] LABS: CREATININE 0.7 mg/dL (0.6-1.3); POTASSIUM 3.4 mmol/L (3.5-5.1)
[2020-10-16 09:00] VITALS: BP 177/86
[2020-10-16 12:00] VITALS: BP 145/75
[2020-10-16 16:00] VITALS: BP 162/84
[2020-10-16 20:05] VITALS: BP 153/92
[2020-10-17] VITALS: BP 160/88
[2020-10-17 04:00] VITALS: BP 173/83
[2020-10-17 04:31] LABS: HEMOGLOBIN 10.4 gm/dL (12.0-15.0); MCH 31.4 pg (26.0-34.0); MCHC 32.5 g/dL (28.0-37.0); MCV 96.6 fL (80.0-100.0); MPV 8.7 fl. (7.2-11.1); RBC 3.31 mil/uL (4.20-5.00); WBC 13.1 thou/uL (4.0-11.0)
[2020-10-17 04:53] LABS: CALCIUM 8.1 mg/dL (8.5-10.1); CREATININE 0.6 mg/dL (0.6-1.3); POTASSIUM 3.7 mmol/L (3.5-5.1)
[2020-10-17 08:00] VITALS: BP 188/109
[2020-10-17 16:37] VITALS: BP 181/96
[2020-10-17 20:00] VITALS: BP 166/93
[2020-10-17 23:58] VITALS: BP 149/79
[2020-10-18 04:36] VITALS: BP 149/67
[2020-10-18 08:00] VITALS: BP 163/82
[2020-10-18] MEDS ORDERED: LISINOPRIL20 MG PO (09:49)
[2020-10-18] MEDS ORDERED: METOPROLOL SUCC25 M1 PO (09:49)
[2020-10-18] MEDS ORDERED: ASPIRIN EC325 M1 PO (09:49)
[2020-10-18] MEDS ORDERED: CATAPRES-TTS 20.2 MG TRANSDERM (09:49)
[2020-10-18] MEDS ORDERED: KEPPRA XR500 MG PO (09:49)
[2020-10-18 12:09] VITALS: BP 154/81
[2020-10-18 13:11] LABS: HEMATOCRIT 31.7 % (37.0-47.0); HEMOGLOBIN 10.6 gm/dL (12.0-15.0); MCH 31.5 pg (26.0-34.0); MCHC 33.3 g/dL (28.0-37.0); MCV 94.5 fL (80.0-100.0); MPV 8.3 fl. (7.2-11.1); RBC 3.36 mil/uL (4.20-5.00); RDW-CV 14.8 % (10.5-14.5); WBC 13.9 thou/uL (4.0-11.0)
[2020-10-18 13:23] LABS: ALBUMIN 2.3 g/dL (3.4-5.0); CALCIUM 8.6 mg/dL (8.5-10.1); CREATININE 0.6 mg/dL (0.6-1.3); POTASSIUM 3.2 mmol/L (3.5-5.1); TOTAL BILIRUBIN 0.7 mg/dL (<0.1-1.0); TOTAL PROTEIN 6.6 g/dL (6.4-8.2)
[2020-10-18 16:00] VITALS: BP 170/106
[2020-10-19] VITALS: BP 159/79
[2020-10-19 04:00] VITALS: BP 160/85
[2020-10-19 08:00] VITALS: BP 172/91
[2020-10-19 10:39] LABS: HEMATOCRIT 31.3 % (37.0-47.0); MCH 30.9 pg (26.0-34.0); MCV 96.5 fL (80.0-100.0); MPV 8.8 fl. (7.2-11.1); RBC 3.24 mil/uL (4.20-5.00); RDW-CV 15.3 % (10.5-14.5); WBC 11.6 thou/uL (4.0-11.0)
[2020-10-19 10:49] LABS: ALBUMIN 2.2 g/dL (3.4-5.0); CALCIUM 8.4 mg/dL (8.5-10.1); CREATININE 0.6 mg/dL (0.6-1.3); POTASSIUM 4.4 mmol/L (3.5-5.1); TOTAL BILIRUBIN 0.5 mg/dL (<0.1-1.0); TOTAL PROTEIN 5.7 g/dL (6.4-8.2)
[2020-10-19 12:33] VITALS: BP 184/101
[2020-10-19 15:42] VITALS: BP 178/98
[2020-10-19 21:56] VITALS: BP 176/84
[2020-10-20 04:00] VITALS: BP 153/77
[2020-10-20 08:00] VITALS: BP 156/78
[2020-10-20 10:46] LABS: MCH 30.9 pg (26.0-34.0); MCHC 32.4 g/dL (28.0-37.0); MCV 95.2 fL (80.0-100.0); MPV 8.7 fl. (7.2-11.1); RBC 3.57 mil/uL (4.20-5.00); RDW-CV 15.1 % (10.5-14.5)
[2020-10-20 10:53] LABS: ALBUMIN 2.3 g/dL (3.4-5.0); ALKALINE PHOSPHATASE 75 U/L (46-116); ANION GAP 15 mmol/L (7-16); BUN 6 mg/dL (7-18); CALCIUM 9.1 mg/dL (8.5-10.1); CHLORIDE 105 mmol/L (98-107); CHOLESTEROL 90 mg/dL (<200); CO2 21 mmol/L (21-32); CREATININE 0.5 mg/dL (0.6-1.3); GLUCOSE 97 mg/dL (70-99); HDL CHOLESTEROL 20 mg/dL (>40); LDL CHOLESTEROL 49 mg/dL (<100); POTASSIUM 3.9 mmol/L (3.5-5.1); SERUM ASSESSMENT Clear; SGOT 33 U/L (15-37); SGPT 22 U/L (30-65); SODIUM 141 mmol/L (136-145); TC:HDL 4.5 Ratio (Not establshd); TOTAL BILIRUBIN 0.4 mg/dL (<0.1-1.0); TOTAL PROTEIN 5.9 g/dL (6.4-8.2); TRIGLYCERIDE 105 mg/dL (<150); VLDL 21 mg/dL (<40)
[2020-10-20 12:00] VITALS: BP 148/76
== END 2020-10-20 13:45 | DRG 871 ==
LOC: M.ERS 06:24 → M.2W 08:38 → M.TBA-ER 08:38 → M.2W 11:29
PROVIDERS: Family Medicine; Internal Medicine; Personal Emergency Response Attendant; ADMIT Internal Medicine; ATTEND Internal Medicine
DX: A41.9 Sepsis, unspecified organism (principal); I63.9 Cerebral infarction, unspecified; E44.0 Moderate protein-calorie malnutrition; N39.0 Urinary tract infection, site not specified; G81.94 Hemiplegia, unspecified affecting left nondominant side; I16.0 Hypertensive urgency; Z20.822 Contact with and (suspected) exposure to COVID-19; J45.909 Unspecified asthma, uncomplicated; I10 Essential (primary) hypertension; E11.9 Type 2 diabetes mellitus without complications; E03.9 Hypothyroidism, unspecified; K21.9 Gastro-esophageal reflux disease without esophagitis; R51.9 Headache, unspecified; B96.89 Other specified bacterial agents as the cause of diseases classified elsewhere; Z85.3 Personal history of malignant neoplasm of breast; Z90.81 Acquired absence of spleen; Z82.3 Family history of stroke; Z82.49 Family history of ischemic heart disease and other diseases of the circulatory system; Z79.899 Other long term (current) drug therapy; Z68.27 Body mass index [BMI] 27.0-27.9, adult

== ENCOUNTER 2020-11-20 18:05 | Emergency (ER) | payer OTHER ==
[~2020-11-20] VITALS: Ht 167.6 cm; Wt 66.2 kg
[~2020-11-20 18:05] MED LIST changes: +CATAPRES-TTS 20.2 MG TRANSDERM; +DESYREL150 MG PO; +KEPPRA XR500 MG PO; +METOPROLOL SUCC25 M1 PO; +TOPROL XL100 MG PO
[2020-11-20 18:44] LABS: URINE BILIRUBIN NEGATIVE (Negative); URINE BLOOD TRACE (Negative); URINE CLARITY CLEAR; URINE COLOR YELLOW; URINE GLUCOSE-RANDOM NEGATIVE (Negative); URINE KETONES NEGATIVE (Negative); URINE LEUKOCYTES-REFLEX 1+ (Negative); URINE NITRITE-REFLEX NEGATIVE (Negative); URINE PROTEIN NEGATIVE (Negative); URINE UROBILINOGEN 0.2 E.U./dl (0.2-1.0)
[2020-11-20 18:49] LABS: SQUAMOUS 0-3 Few /LPF (0-3)
[2020-11-20 18:50] LABS: BACTERIA-REFLEX 1-9 Few /HPF (None Seen); CASTS None Seen /LPF (None Seen); CRYSTALS None Seen /LPF (None Seen); URINE RBC 0-2 Rare /HPF (0-2); URINE WBC-REFLEX 0-5 Rare /HPF (0-5)
[2020-11-20 19:26] LABS: ABSOLUTE BASOPHILS 0.1 thou/uL (0.0-0.2); ABSOLUTE EOSINOPHILS 0.4 thou/uL (0.0-0.7); ABSOLUTE LYMPHOCYTES 2.1 thou/uL (0.8-5.3); ABSOLUTE MONOCYTES 0.7 thou/uL (0.0-1.2); ABSOLUTE NEUTROPHILS 7.1 thou/uL (1.6-8.1); BASOPHILS 1.1 %; EOSINOPHILS 4.1 %; HEMOGLOBIN 10.3 gm/dL (12.0-15.0); MCH 33.3 pg (26.0-34.0); MCHC 33.4 g/dL (28.0-37.0); MCV 99.8 fL (80.0-100.0); MONOCYTES 6.8 %; MPV 8.2 fl. (7.2-11.1); NUCLEATED RBCS 0 /100WBC; PLATELET COUNT* 527 thou/uL (150-400); WBC 10.4 thou/uL (4.0-11.0)
[2020-11-20 19:32] LABS: CALCIUM 9.5 mg/dL (8.5-10.1); CREATININE 0.9 mg/dL (0.6-1.3); POTASSIUM 4.2 mmol/L (3.5-5.1)
[2020-11-20 19:36] LABS: ALBUMIN 3.4 g/dL (3.4-5.0); TOTAL BILIRUBIN 0.4 mg/dL (<0.1-1.0)
[2020-11-20 20:35] VITALS: BP 175/72
--- NOTE | 2020-11-21 15:26 | EKG ---
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: [facility] : 1940 Requested By: Melanie Montoya Order Number: [id number] MD: Rashid Soto Measurements Intervals [place] Rate: 75 P: -21 [place]: 166 QRS: -35 QRSD: 93 T: 58 QT: 412 QTc: 461 Interpretive Statements Sinus rhythm LVH with secondary repolarization abnormality Compared to ECG 10/12/2020 06:37:16 Q waves no longer present Electronically Signed On 11-21-2020 15:26:40 CDT by Rashid Soto [email or web address] <ELECTRONICALLY SIGNED> By: Rashid Soto MD, [facility] 11/21/20 1526 20 20 Rashid Soto MD, [facility] /EPI
== END 2020-11-20 20:35 | disposition short-term general hospital (02) ==
LOC: M.ERS 18:05
PROVIDERS: Nurse Practitioner Family
DX: I61.9 Nontraumatic intracerebral hemorrhage, unspecified (principal); Z20.822 Contact with and (suspected) exposure to COVID-19; J45.909 Unspecified asthma, uncomplicated; I10 Essential (primary) hypertension; E78.00 Pure hypercholesterolemia, unspecified; E11.9 Type 2 diabetes mellitus without complications; E03.9 Hypothyroidism, unspecified; Z85.3 Personal history of malignant neoplasm of breast; Z86.73 Personal history of transient ischemic attack (TIA), and cerebral infarction without residual deficits; Z79.4 Long term (current) use of insulin

== ENCOUNTER 2021-07-11 20:56 | Emergency (ER) | payer OTHER ==
[~2021-07-11] VITALS: Ht 160 cm; Wt 54.4 kg
[2021-07-11] MEDS ORDERED: NORCO5 PO (21:07)
[2021-07-11] MEDS ORDERED: ELIQUIS2.5 MG PO (21:08)
[2021-07-11] MEDS ORDERED: PACERONE 200 M200 M1 PO (21:08)
[2021-07-11] MEDS ORDERED: LOVASTAT40 PO (21:09)
[2021-07-11] MEDS ORDERED: KEPPRA XR750 MG PO (21:09)
[2021-07-11] MEDS ORDERED: SEROQUEL 25 MG25 MG PO (21:10)
[2021-07-11 21:43] VITALS: BP 145/70
== END 2021-07-11 21:45 | disposition left against medical advice (07) ==
LOC: M.ERS 20:56
DX: M54.50 Low back pain, unspecified (principal); R30.9 Painful micturition, unspecified; Z53.21 Procedure and treatment not carried out due to patient leaving prior to being seen by health care provider

== ENCOUNTER 2021-07-22 17:40 | Inpatient (IN) | payer OTHER ==
[~2021-07-22] VITALS: Ht 149.9 cm; Wt 45.4 kg
--- NOTE | ~2021-07-22 | CON ---
[address] [address] CONSULTATION Name: GERBER FOSTER Room: [address] IN M.R.#: [id number] Admission: 07/22/21 Attend Phys: Herman Mendoza MD Discharge: Date of : 40 Report #: [id number] THIS REPORT FOR: cc: Simon Davison Russell J. DO Namin, Farid M. MD ~ cc: Simon Davison DO DATE OF CONSULTATION: 07/24/2021 REQUESTING PHYSICIAN: Herman Mendoza MD HISTORY OF PRESENT ILLNESS: This is an 80-year-old female with history of endoscopic evaluation a year and a half ago by Dr. Elias. The patient presented to hospital on 07/22 with hypoglycemia. She has been complaining of lower abdominal pain and burning. The patient denies any hematochezia or melena. CT of abdomen and pelvis was obtained on admission, which showed distal rectal colitis and mural thickening measuring up to 1.2 cm, which was most prominent in the right posterior lateral aspect with perirectal edema and minimal nearby extraperitoneal free fluid. PAST MEDICAL HISTORY: Significant for history of asthma, hypothyroidism, history of ITP, status post splenectomy, CVA with no residual deficit, hypertension, left breast cancer in 1998, TIAs. ALLERGIES: No known drug allergy. MEDICATIONS: Please refer to MAR. SOCIAL HISTORY: The patient lives at home. Her son appears to be involved with her care. FAMILY HISTORY: Noncontributory. PHYSICAL EXAMINATION: VITAL SIGNS: Reveal blood pressure of 145/82, respirations 17, pulse 89, temperature 98.5. LUNGS: Clear. CARDIOVASCULAR: Regular. ABDOMEN: Soft, nontender, nondistended. Bowel sounds are positive. NEUROLOGIC: The patient is alert and oriented. No apparent motor deficits. LABORATORY DATA: Reveal sodium of 135, potassium 3.6, BUN is 14, creatinine 0.7, glucose 173, AST is 22, ALT 35, alk phos 51, total bili is 0.4. WBC is 9.9 with hemoglobin of 9.7 and platelets [place] 352[place] [address] CONSULTATION Name: GERBER FOSTER Room: [address] IN [facility]#: [id number] Admission: 07/22/21 Attend Phys: Herman Mendoza MD Discharge: Date of : 40 Report #: [id number] IMAGING: As discussed above. ASSESSMENT AND PLAN: The patient with lower abdominal pain and side pain, who has had CT with evidence of proctitis and prominence of the rectal wall. We will consider a flex sigmoidoscopy tomorrow. I will make further recommendation based on the endoscopic finding. By: 1650 15Volodymyr Meyers MD /nt
--- NOTE | ~2021-07-22 | PROC ---
[address] [address] PROCEDURE REPORT Name: GERBER FOSTER ÓSCAR Room: [address] ADM IN M.R.#: [id number] Admission: 07/22/21 Attend Phys: Herman Mendoza MD Discharge: Date of : 40 Report #: [id number] THIS REPORT FOR: cc: Simon Davison Russell J. DO ALECIA,Medical Records Staff ~ For GI report, please see the Provation report in Perceptive 7 content. By: 1041Medical Records Staff ALECIA /TINO
[~2021-07-22 17:40] MED LIST changes: +ELIQUIS2.5 MG PO; +KEPPRA XR750 MG PO; +LOVASTAT40 PO; +NORCO5 PO; +PACERONE 200 M200 M1 PO; +SEROQUEL 25 MG25 MG PO
[2021-07-22 17:56] VITALS: BP 201/76
[2021-07-22 18:39] LABS: HEMATOCRIT 36.4 % (37.0-47.0); HEMOGLOBIN 11.9 gm/dL (12.0-15.0); MCH 30.7 pg (26.0-34.0); MCHC 32.8 g/dL (28.0-37.0); MCV 93.5 fL (80.0-100.0); MPV 7.8 fl. (7.2-11.1); NUCLEATED RBCS 0 /100WBC; PLATELET COUNT* 473 thou/uL (150-400); RBC 3.89 mil/uL (4.20-5.00); RDW-CV 20.8 % (10.5-14.5); WBC 14.1 thou/uL (4.0-11.0)
[2021-07-22 18:49] LABS: CALCIUM 7.8 mg/dL (8.5-10.1)
[2021-07-22 18:59] LABS: ALBUMIN 2.1 g/dL (3.4-5.0); TOTAL BILIRUBIN 0.5 mg/dL (<0.1-1.0); TOTAL PROTEIN 5.1 g/dL (6.4-8.2)
[2021-07-22 19:12] LABS: ABSOLUTE LYMPHOCYTES 0.4 thou/uL (0.8-5.3); ABSOLUTE MONOCYTES 0.1 thou/uL (0.0-1.2); ABSOLUTE NEUTROPHILS 13.5 thou/uL (1.6-8.1); ANISOCYTOSIS 2+
[2021-07-22 19:14] LABS: HYPOCHROMASIA Occasional; PLATELET ESTIMATE ADEQUATE
[2021-07-22 22:05] VITALS: BP 145/77
[2021-07-22 22:20] VITALS: BP 154/80
[2021-07-22 23:54] LABS: CALCIUM 7.8 mg/dL (8.5-10.1); CREATININE 0.8 mg/dL (0.6-1.3); POTASSIUM 3.6 mmol/L (3.5-5.1)
[2021-07-23 04:00] VITALS: BP 139/54
[2021-07-23 08:00] VITALS: BP 138/68
--- NOTE | 2021-07-23 08:45 | NUR ---
PATIENT ARRIVED ON FLOOR FROM ER AT ABOUT 2200. PATIENT ADMISSION HISTORY AND ASSESSMENT WAS COMPLETED CHARTED. D5 NS WAS STARTED AT 80 ML/HR. BS DROPPED TO 68 AROUND 2300 ORANGE JUICE WAS GIVEN. REDRAW AT ABOUT 0100 WAS 114. PATIENT WAS STILL 97 AROUND 0600. PATIENT WAS GIVEN PAIN MEDICINE TWICE FOR BACK PAIN. BED ALARM REMAINS ON FOR PATIENT SAFTEY. WILL CONTINUE TO MONITOR.
--- NOTE | 2021-07-23 10:08 | EKG ---
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: CARRI : 1940 Requested By: Anthony Long Order Number: [id number] MD: Maulik Davila Measurements Intervals [place] Rate: 55 P: 76 [place]: 165 QRS: -40 QRSD: 114 T: 16 QT: 516 QTc: 494 Interpretive Statements Sinus bradycardia Abnormal R-wave progression, early transition LVH with IVCD, LAD and secondary repol abnrm Borderline prolonged QT interval Compared to ECG 11/20/2020 19:21:05 rate has slowed Electronically Signed On 07-23-2021 10:08:15 PIPE STEM REPAIRER by Maulik Davila [email or web address] <ELECTRONICALLY SIGNED> By: Maulik Davila MD, [facility] 07/23/21 1008 1757 1757 Maulik Davila MD, [facility] /EPI
--- NOTE | 2021-07-23 10:13 | EKG ---
[place] [address] ELECTROCARDIOGRAM REPORT Name: GERBER FOSTER Room: [address] ADM IN M.R.#: [id number] Admission: 07/22/21 Attend Phys: Herman Mendoza, Discharge: Date of : 40 Date of Service: 07/22/212012 Report #: [id number] THIS REPORT FOR: //name// [facility] ED Test Date: 2021-07-22 Test Time: 20:13:11 Pat Name: GERBER FOSTER Department: Room: [facility] Gender: F Heel Lining Paster: : 1940 Requested By: Melanie Montoya Order Number: [id number] MD: Maulik Davila Measurements Intervals [place] Rate: 55 P: DC: QRS: -39 QRSD: 104 T: -41 QT: 527 QTc: 505 Interpretive Statements sinus bradycardia left axis Left ventricular hypertrophy Anterior Q waves, possibly due to LVH Nonspecific T abnormalities, inferior leads Prolonged QT interval Compared to ECG 07/22/2021 17:57:41 Early repolarization no longer present Electronically Signed On 07-23-2021 10:12:48 HOSPITALIST NOCTURNIST PHYSICIAN by Maulik Davila [email or web address] <ELECTRONICALLY SIGNED> By: Maulik Davila MD, FACC 07/23/21 1012 12 12 Maulik Davila MD, FACC /EPI
[2021-07-23 11:31] LABS: ABSOLUTE LYMPHOCYTES 0.6 thou/uL (0.8-5.3); ABSOLUTE MONOCYTES 0.6 thou/uL (0.0-1.2); ABSOLUTE NEUTROPHILS 10.4 thou/uL (1.6-8.1); BASOPHILS 0.3 %; HEMATOCRIT 34.6 % (37.0-47.0); LYMPHOCYTES 4.8 %; MCH 30.3 pg (26.0-34.0); MCHC 31.7 g/dL (28.0-37.0); MCV 95.7 fL (80.0-100.0); MONOCYTES 5.3 %; MPV 8.5 fl. (7.2-11.1); NUCLEATED RBCS 0 /100WBC; PLATELET COUNT* 406 thou/uL (150-400); POLYS 89.6 %; RBC 3.61 mil/uL (4.20-5.00); RDW-CV 21.6 % (10.5-14.5); WBC 11.6 thou/uL (4.0-11.0)
[2021-07-23 11:53] LABS: ALBUMIN 1.9 g/dL (3.4-5.0); CALCIUM 7.5 mg/dL (8.5-10.1); CREATININE 0.9 mg/dL (0.6-1.3); TOTAL BILIRUBIN 0.4 mg/dL (<0.1-1.0); TOTAL PROTEIN 4.3 g/dL (6.4-8.2)
[2021-07-23 12:00] VITALS: BP 158/71
[2021-07-23 15:50] VITALS: BP 136/65
[2021-07-23 20:30] VITALS: BP 118/65
[2021-07-24 00:16] VITALS: BP 121/61
[2021-07-24 03:05] LABS: GLYCOHEMOGLOBIN (HGB A1C) 9.4 % (4.8-5.6)
[2021-07-24 04:00] VITALS: BP 117/72
[2021-07-24 04:28] LABS: ABSOLUTE LYMPHOCYTES 0.9 thou/uL (0.8-5.3); ABSOLUTE MONOCYTES 0.2 thou/uL (0.0-1.2); ABSOLUTE NEUTROPHILS 8.7 thou/uL (1.6-8.1); BASOPHILS 0.2 %; EOSINOPHILS 0.1 %; HEMATOCRIT 29.5 % (37.0-47.0); HEMOGLOBIN 9.7 gm/dL (12.0-15.0); LYMPHOCYTES 9.4 %; MCH 30.9 pg (26.0-34.0); MCHC 32.8 g/dL (28.0-37.0); MCV 94.2 fL (80.0-100.0); MONOCYTES 2.5 %; MPV 8.1 fl. (7.2-11.1); NUCLEATED RBCS 0 /100WBC; PLATELET COUNT* 352 thou/uL (150-400); POLYS 87.8 %; RBC 3.13 mil/uL (4.20-5.00); RDW-CV 21.6 % (10.5-14.5); WBC 9.9 thou/uL (4.0-11.0)
[2021-07-24 04:38] LABS: CALCIUM 6.9 mg/dL (8.5-10.1); CREATININE 0.7 mg/dL (0.6-1.3); POTASSIUM 3.6 mmol/L (3.5-5.1)
[2021-07-24 08:00] VITALS: BP 171/79
[2021-07-24 11:30] VITALS: BP 145/74
--- NOTE | 2021-07-24 15:23 | NUR ---
Patient has rested in her bed this shift. C/O back pain this AM given PRN medication per physcian orders and was able to rest with eyes closed. Participation with therapy limitied d/t back discomfort. Appetite is poor to fair at meals. LCTA, no edema noted to extremeties, patient is alert to self, and place and is hard of hearing has a hearing device at bedside that helps with communication, is able to make her needs and wants known. Son at bedside in the afternoon, C/O back pain again in afternoon with PRN medication administered. Family is bringing eye drops from home prescribed for recent eye procedure. Medication and treatments given per physcain orders, will continue with the plan of care.
[2021-07-24 15:27] VITALS: BP 145/82
--- NOTE | 2021-07-24 17:11 | NUR ---
CM ASSESSMENT: PT A, BUT FORGETFUL. PT VERY PAMUNKEY. CM CONTACTE PT'S SON AND HE ASSIST WITH CM ASSESSMENT. PT RESIDES AT HOME WITH SON AND HE ASSIST HER NEEDED WITH CARES. PT NORMALLY INDEPENDENT, BUT HAS NEEDE MORE ASSISTANCE LATELY. PT USES A WALKER FOR MOBILITY. PT HAS PAST HX OF HH. PT HAS 0 HX OF SNF. PT'S SON INFORMS OF PLAN FOR THE PT TO RETURN HOME WITH HH IF POSSIBLE, BUT IS OPEN TO SNF IF NOT ABLE TO RETURN TO HER BASELINE AT D/C. CM WILL REMAIN AVAILABLE TO ASSIST AND FOLLOW NEEDED.
--- NOTE | 2021-07-24 18:31 | NUR ---
THIS RN AGREES WITH THE CHARTING COMPLETED BY ANGELA Paz LPN ON 07/24/21
[2021-07-24 20:00] VITALS: BP 127/79
[2021-07-25] VITALS: BP 163/81
[2021-07-25 04:00] VITALS: BP 174/81
[2021-07-25 05:15] LABS: ABSOLUTE LYMPHOCYTES 1.3 thou/uL (0.8-5.3); ABSOLUTE MONOCYTES 0.4 thou/uL (0.0-1.2); ABSOLUTE NEUTROPHILS 9.3 thou/uL (1.6-8.1); BASOPHILS 0.2 %; EOSINOPHILS 0.2 %; HEMATOCRIT 30.8 % (37.0-47.0); HEMOGLOBIN 9.9 gm/dL (12.0-15.0); LYMPHOCYTES 12.1 %; MCH 30.8 pg (26.0-34.0); MCHC 32.2 g/dL (28.0-37.0); MCV 95.6 fL (80.0-100.0); MONOCYTES 3.3 %; MPV 8.2 fl. (7.2-11.1); NUCLEATED RBCS 0 /100WBC; PLATELET COUNT* 311 thou/uL (150-400); POLYS 84.2 %; RBC 3.22 mil/uL (4.20-5.00); RDW-CV 21.8 % (10.5-14.5)
[2021-07-25 05:31] LABS: ALBUMIN 1.4 g/dL (3.4-5.0); CALCIUM 7.6 mg/dL (8.5-10.1); CREATININE 0.8 mg/dL (0.6-1.3); POTASSIUM 3.4 mmol/L (3.5-5.1); TOTAL BILIRUBIN 0.5 mg/dL (<0.1-1.0); TOTAL PROTEIN 4.4 g/dL (6.4-8.2)
[2021-07-25 05:59] LABS: ANISOCYTOSIS 2+; PLATELET ESTIMATE ADEQUATE
[2021-07-25 08:00] VITALS: BP 161/86
[2021-07-25 08:43] LABS: MAGNESIUM 1.6 mg/dL (1.8-2.4); PHOSPHORUS* 2.1 mg/dL (2.5-4.9)
[2021-07-25 12:45] VITALS: BP 119/72
--- NOTE | 2021-07-25 12:51 | NUR ---
PLAN OF CARE: CM SPOKE TO THE PT'S SON TO DISCUSS D/C PLANNING AND SNF PLACEMENT. PT'S SON DECLINED SNF PLACEMENT STATING 'I CAN'T SEND HER TO THE [facility], SHE WOULD . SHE HAD MADE ME PROMISE TO NEVER SEND HER TO THE [facility]. THAT IS HER BIGGEST FEAR'. CM ATTEMPTED TO EDUCATE AND INFORM THE PT'S SON RIANA ABOUT THE PT'S CURRENT MOBILITY STATUS AND CARE NEEDS, BUT HE CONTINUED TO DECLINE DESPITE EDUCATION AND ENCOURAGEMENT. PLAN FOR THE PT TO POSSIBLY D/C TOMORROW. CM WILL REMAIN AVAILABLE TO ASSIST AND FOLLOW NEEDED.
[2021-07-25 14:02] LABS: MAGNESIUM 1.6 mg/dL (1.8-2.4); POTASSIUM 3.7 mmol/L (3.5-5.1)
--- NOTE | 2021-07-25 15:52 | NUR ---
Patient is alert to self and place, is [place] and uses a hearing device. Patient likes to keep her eyes closed but is able to communicate better if she will make eye contact. Patient has been NPO today after 1000 for a procedure this evening. Lung sounds clear in upper lobes with some fine crackles noted to right lower base, no cough noted, BS+x4, abdomen is soft and non tender, no edema noted to the extremeties. Both IVs in right wrist infiltrated and were removed. A left upper arm midline was placed by RN/IV nurse. Patient c/o lower back discomfort this AM after repositioning she was able to go to sleep. Two warm water enemas administered before colon procedure with large results. Medications and treatments given per physcian orders. Will continue with the plan of care.
[2021-07-25 17:32] VITALS: BP 152/62
[2021-07-25 19:35] VITALS: BP 148/75
[2021-07-26] VITALS: BP 149/77
--- NOTE | 2021-07-26 01:10 | NUR ---
PT IS CONFUSED. VERY HARD OF HEARING. PT IS INCONTINANT. VSS. PERRLA. PT REPORTS LOWER BACK PAIN. PT IS IN SINUS RYTHM ON THE TELEMETRY. PT IS RESTING COMFORTABLY IN BED. RESPIRATIONS ARE EVEN AND NONLABORED. WILL CONTINUE TO MONITOR PT.
[2021-07-26 04:00] VITALS: BP 160/88
[2021-07-26 05:05] LABS: HEMOGLOBIN 9.5 gm/dL (12.0-15.0)
[2021-07-26 05:09] LABS: ABSOLUTE LYMPHOCYTES 1.4 thou/uL (0.8-5.3); ABSOLUTE MONOCYTES 0.3 thou/uL (0.0-1.2); ABSOLUTE NEUTROPHILS 6.6 thou/uL (1.6-8.1); BASOPHILS 0.2 %; EOSINOPHILS 0.1 %; HEMATOCRIT 28.9 % (37.0-47.0); LYMPHOCYTES 16.8 %; MCH 30.7 pg (26.0-34.0); MCHC 33.1 g/dL (28.0-37.0); MCV 92.9 fL (80.0-100.0); MONOCYTES 3.6 %; MPV 8.5 fl. (7.2-11.1); NUCLEATED RBCS 0 /100WBC; PLATELET COUNT* 295 thou/uL (150-400); POLYS 79.3 %; RBC 3.11 mil/uL (4.20-5.00); RDW-CV 21.1 % (10.5-14.5); WBC 8.4 thou/uL (4.0-11.0)
[2021-07-26 05:37] LABS: ALBUMIN 1.4 g/dL (3.4-5.0); CALCIUM 7.5 mg/dL (8.5-10.1); CREATININE 0.5 mg/dL (0.6-1.3); POTASSIUM 3.3 mmol/L (3.5-5.1); TOTAL BILIRUBIN 0.5 mg/dL (<0.1-1.0); TOTAL PROTEIN 4.6 g/dL (6.4-8.2)
[2021-07-26 06:54] LABS: ANISOCYTOSIS 2+; PLATELET ESTIMATE ADEQUATE; POLYCHROMASIA 1+
[2021-07-26 08:00] VITALS: BP 170/89
--- NOTE | 2021-07-26 09:49 | NUR ---
PLAN OF CARE: CM SPOKE TO PT'S SON TO DISCUSS D/C PLANNING AND SNF VS HOME WITH HH. PT'S SON INFORMS THAT THE BEST THING FOR THE PT IS FOR HER TO RETURN HOME WITH HH AND HIS ASSSITANCE HE HAS ALWAYS TAKEN CARE OF HER AND SHE DOES NOT WANT TO GO TO A PRISON. PT F/U NEEDED TO DETERMINE THE BEST AND MOST SAFE POC FOR THE PT. CM WILL REMAIN AVAILABLE TO ASSIST AND FOLLOW NEEDED.
[2021-07-26 12:11] VITALS: BP 148/66
[2021-07-26 17:27] VITALS: BP 138/69
[2021-07-26 20:30] VITALS: BP 132/78
[2021-07-27] VITALS: BP 113/69
[2021-07-27 04:00] VITALS: BP 125/65
[2021-07-27 08:00] VITALS: BP 127/62
[2021-07-27 12:00] VITALS: BP 128/73
[2021-07-27 16:00] VITALS: BP 118/67
--- NOTE | 2021-07-27 16:47 | NUR ---
Discussed pt in team meeting today - pt currently has an ileus. Physician is recommending SNF vs HH. Previous SW discussed SNF with family but son reports pt will return home with HH. Will set up HH closer to when stable for discharge. CM to continue to follow for discharge planning.
[2021-07-27 20:00] VITALS: BP 137/75
--- NOTE | 2021-07-28 01:05 | NUR ---
SAT UP IN RECLINER UNTIL APPROX 2230. ASSISTED BACK TO BED. PT ABLE TO USE WALKER, TAKE STEPS AND PLACE OWN LEGS INTO BED. PT HAS CHRONIC LOW BACK PAIN. INCONT OF URINE. TELEMETRY ON SHOWING SR. PT VERY [place] BUT ABLE TO COMMUNICATE. SON, DEVAN, CALL ASKING ABOUT PT CONDITION AND ANY FURTHER TESTS.
[2021-07-28 03:02] VITALS: BP 115/54
[2021-07-28 06:48] VITALS: BP 138/70
[2021-07-28 08:00] VITALS: BP 179/95
--- NOTE | 2021-07-28 08:00 | NUR ---
AM ASSESSMENT COMPLETE, DEFER TO COMPUTER CHARTING. BIOINFORMATICS SCIENTIST TRACKING SR. ALERT, ORINETED ANXIOUS TEARY AT TIMES THIS AM. REPORTING HAVING BACK DISCOMFORT - REASSURANCE GIVEN, REPOSITION FOR COMFORT AND MEAL - WILL GIVE REPEAT PAIN MEDICATION TO ASSIST WITH PAIN CONTROL. ROOM AIR, NO SIGN OF RESPIRATORY DISTRESS. CALL MUSE WITHIN REACH. WILL MONITOR.
[2021-07-28 12:31] VITALS: BP 128/62
--- NOTE | 2021-07-28 16:04 | NUR ---
CARIDAC MONITOR TRACKING ST. REMAINS ALERT AND ORIENTED, ROOM AIR NO SIGN OF RESPIRATORY DISTRESS. INCONTINENT OF URINE, SAMEER CARE GIVEN DURING SHIFT. TOLERATED DIET WITH NO COMPLAINTS OF NAUSEA. REPORTING ADEQUATE PAIN CONTROL WITH SCHEDULED AND PRN PAIN MEDICATION FOR COMPLAINTS OF BACK PAIN. WILL GIVE MG CITRATE PER ORDERS TO ASSIST WITH HAVING BM, GIVEN MIRALAX EARLIER PER ORDERS. HOB ELEVATED, CALL MUSE WITHIN REACH. WILL CONTINUE WITH PLAN OF CARE.
--- NOTE | 2021-07-28 16:24 | NUR ---
Received phone call from son - Dominick Rao discussing the need for SNF placement for mother. He would like referrals to the following places: [facility] in [place], [place] - they do not accept [employer] [facility] ([facility]) - pt's other son lives in [place] and this is closer to him. or fax: . Faxed a referral but have yet to hear a response. Son wanted a referral faxed to [facility] - but unable to find a location with this name. CM to continue to follow for discharge planning.
[2021-07-28 18:56] VITALS: BP 155/69
[2021-07-28 20:00] VITALS: BP 146/70
[2021-07-29] VITALS: BP 154/61
--- NOTE | 2021-07-29 02:34 | NUR ---
RESTING QUIETLY WITH EYES CLOSED MOST OF EVENING AND NIGHT. PT VERY [place], ABLE TO COMMUNICATE WITH ADAPTIVE DEVICE. INCONT OF LOOSE STOOL AND URINE. RECTAL AREA RED WITH BARRIER OINTMENT APPLIED. TAKES PO MEDS AND FLUIDS WELL. TELEMETRY ON SHOWING SR.
[2021-07-29 05:03] LABS: HEMATOCRIT 25.3 % (37.0-47.0); HEMOGLOBIN 8.2 gm/dL (12.0-15.0); MCH 30.4 pg (26.0-34.0); MCHC 32.3 g/dL (28.0-37.0); MCV 94.1 fL (80.0-100.0); MPV 8.7 fl. (7.2-11.1); RBC 2.69 mil/uL (4.20-5.00); RDW-CV 20.9 % (10.5-14.5); WBC 16.2 thou/uL (4.0-11.0)
[2021-07-29 05:15] LABS: CREATININE 0.6 mg/dL (0.6-1.3); MAGNESIUM 1.9 mg/dL (1.8-2.4)
[2021-07-29 06:05] VITALS: BP 162/76
[2021-07-29 07:45] VITALS: BP 171/88
[2021-07-29 12:00] VITALS: BP 119/67
--- NOTE | 2021-07-29 14:00 | NUR ---
Spoke with son today (Dominick Rao) about SNF options. So far we have faxed referrals to: [facility] (does not accept [employer]) [facility] - ([facility]) - will need to follow up on Saturday07/31/21 at: / [facility] (Nani in admissions) [phone] - fax: [phone] [place], [place] ([facility] in Admissions) and Will follow up on 07/31/21.
[2021-07-29 16:00] VITALS: BP 156/90
--- NOTE | 2021-07-29 18:48 | NUR ---
ALERT AND ORIENTED TO SELF. APPETITE POOR. TURNED EVERY 2 HOURS. INCONTINENT OF URINE. BARRIER CREAM APPLIED TO CHRISTOPHER SAMEER AREA. NEZ PERCE, WEARS DEVICE. USED PO PAIN MEDICATION TO HELP WITH BACK AND STOMACH PAIN. CONTINUES ON IV ANTIBIODICS WITHOUT ADVERSE REACTIONS. BED ALARM ON. CALL LIGHT WITHIN REACH.
[2021-07-29 20:00] VITALS: BP 147/77
[2021-07-30] VITALS (7 sets, daily range): BP systolic 116–160; BP diastolic 63–88
[2021-07-30 04:34] LABS: HEMATOCRIT 26.8 % (37.0-47.0); HEMOGLOBIN 8.8 gm/dL (12.0-15.0); MCH 30.8 pg (26.0-34.0); MCV 93.3 fL (80.0-100.0); MPV 8.7 fl. (7.2-11.1); RBC 2.87 mil/uL (4.20-5.00); RDW-CV 20.6 % (10.5-14.5)
--- NOTE | 2021-07-30 05:14 | NUR ---
ASSUMED PT CARE AT APPROX 1930. PT IS AWAKE AND ORIENTED X4, FORGETFUL. PT IS NOT IN DISTRESS, NO DESATURATIONS NOTED ON 2L OF O2/NC. PT IS TRACING ST/SR ON THE BUREAU DIRECTOR. PAIN MEDICINE GIVEN FOR CHRONIC BACK PAIN WITH RELIEF. PT IS INCNTINENT, FREQUENT BED CHANGES DONE, PT IS KEPT CLEAN AND DRY AND REPOSITIONED. NO ACUTE CHANGES NOTED. CALLED SON-DEVAN LAST NIGHT FOR UPDATES AND TO ASSIST PT TO SPEAK WITH SON BUT DEVAN IS SAID HE'S "IN THE MIDDLE OF SOMETHING AND HE WILL CALL BACK". THIS NURSE HAS NOT RECIEVED ANY CALLS SINCE. WCTM.
[2021-07-30 05:45] LABS: ALBUMIN 1.3 g/dL (3.4-5.0); CALCIUM 8.2 mg/dL (8.5-10.1); CREATININE 0.7 mg/dL (0.6-1.3); MAGNESIUM 2.1 mg/dL (1.8-2.4); POTASSIUM 3.6 mmol/L (3.5-5.1); TOTAL BILIRUBIN 0.5 mg/dL (<0.1-1.0); TOTAL PROTEIN 4.9 g/dL (6.4-8.2)
--- NOTE | 2021-07-30 16:44 | NUR ---
PT UP WITH ASSIST X1. WORKED WITH PT. UP TO CHAIR. SON HERE TO VISIT. VERY [place]. HAS A HEARING DIVICE THAT YOU SPEAK INTO WITH HEADPHONES FOR HER. SON REPLACED BATTERIES. PRN AND SCHEDULED PAIN MEDICATIONS GIVEN. CALL LIGHT IN REACH. FALL PRECAUTIONS IN PLACE.
[2021-07-31 04:28] VITALS: BP 157/81
--- NOTE | 2021-07-31 04:52 | NUR ---
ASSUMED PT CARE AT APPROX 1930. PT IS AWAKE AND ORIENTED X4, FORGETFUL. PT IS NOT IN DISTRESS, NO DESATURATIONS NOTED ON ROOM AIR. PT IS TRACING ST/SR ON THE REVERSE UNIT OPERATOR. PAIN MEDICINE GIVEN FOR CHRONIC BACK PAIN WITH RELIEF. PT IS INCONTINENT, FREQUENT BED CHANGES DONE, PT IS KEPT CLEAN AND DRY AND REPOSITIONED. NO ACUTE CHANGES NOTED. HIGH FALL PRECAUTIONS IN PLACE.
[2021-07-31 07:30] VITALS: BP 165/86
[2021-07-31] MEDS ORDERED: CEFDINIR300 MG PO (10:18)
[2021-07-31] MEDS ORDERED: PREDNISONE 10 M10 M1 PO (10:18)
[2021-07-31] MEDS ORDERED: NYSTATIN100000 UNI SW&SWALLOW (10:18)
[2021-07-31] MEDS ORDERED: NORCO5 PO (10:18)
[2021-07-31] MEDS ORDERED: LIDODERM1 EACH TOP (10:18)
[2021-07-31] MEDS ORDERED: NYSTATIN15 G3 TOP (10:18)
[2021-07-31] MEDS ORDERED: MIRALAX17 GM PO (10:22)
[2021-07-31 11:59] VITALS: BP 147/78
[2021-07-31 15:49] VITALS: BP 142/79
--- NOTE | 2021-07-31 17:02 | NUR ---
Several conversations with son Dominick Rao. He has decided he would like pt to go to [facility] ([facility]). Phu[facility] from [facility] has accepted pt and will have a bed available on 08/01/21. Son is in agreement with discharge plan. CM to continue to follow for discharge planning.
--- NOTE | 2021-07-31 17:24 | NUR ---
PATIENT UP WITH ASSISTANCE TO CHAIR THIS AM. SCHED TRAMADOL AND PRN HYDROCODONE FOR BACK PAIN. INCONTINENT OF URINE AND SMALL INCONTINENT STOOL. NYSTATIN CREAM TO SAMEER AREA ORDERED. SON CALLED AND UPDATE GIVEN. PATIENT TO DISCHARGE TO [facility] WHEN BED AVAILABLE. INSULIN GIVEN WITH MEALS ORDERED.
[2021-07-31 20:00] VITALS: BP 136/79
[2021-08-01 00:14] VITALS: BP 127/43
[2021-08-01 05:04] VITALS: BP 119/55
--- NOTE | 2021-08-01 05:05 | NUR ---
ASSUMED CARE AT 1930. PATIENT RESTED IN BED ALL SHIFT. VERY [place], PATIENT'S OWN MICROPHONES UTILIZED. INCONTINENT OF URINE, SAMEER CARE GIVEN, NYSTATIN OINT APPLIED TO PINK RASH IN SAMEER AREA. SCHEDULED TRAMADOL, GIVEN NORCO FOR BREAKTHROUGH PAIN. REFUSED MIRILAX AT HS. LEFT MIDINE INTACT. HOURLY ROUNDS CONTINUE. BED ALARM ON. CALL LITE IN REACH.
[2021-08-01 08:00] VITALS: BP 130/79
--- NOTE | 2021-08-01 12:01 | NUR ---
Pt is to discharge to [facility] today. Received insurance auth through [employer] that we submitted. DA124 Code: [id number]. Spoke at length with son - who is upset he has been wanting a physician to call him even though Doctor reports they have been speaking to son. He is very focused on pt's bowel issues and is worried she will develope an ileus. Discussed nursing reports pt has had regular BM's. Son seemed satisfied with this answer and agreeable to discharge.
[2021-08-01 12:03] VITALS: BP 150/83
--- NOTE | 2021-08-01 14:07 | NUR ---
AM ASSESSMENT AND VITAL SIGNS COMPLETED DOCUMENTED. ORDERS RECEIVED TO DISCHARGE TODAY. ARRANGEMENTS HAVE BEEN MADE FOR HER TO GO TO [facility] AND TRANSPORTATION WILL BE PROVIDED BY THE FACILITY. TELEMETRY AMD IV ACCESS DC'D.
[2021-08-01 16:02] VITALS: BP 132/69
== END 2021-08-01 16:25 | DRG 177 ==
LOC: M.ERS 17:40 → M.2W 18:41 → M.TBA-ER 18:41 → M.2W 22:34
PROVIDERS: Family Medicine; Internal Medicine; Nurse Practitioner Family; ADMIT Internal Medicine; ATTEND Internal Medicine
PROC: 0DJD8ZZ Inspection of Lower Intestinal Tract, Via Natural or Artificial Opening Endoscopic (ICD-10-PCS; 2021-07-25)
PROC: 0HBRXZZ Excision of Toe Nail, External Approach (ICD-10-PCS; principal; 2021-07-28)
DX: J15.6 Pneumonia due to other Gram-negative bacteria (principal); G93.41 Metabolic encephalopathy; R65.11 Systemic inflammatory response syndrome (SIRS) of non-infectious origin with acute organ dysfunction; K56.7 Ileus, unspecified; Z20.822 Contact with and (suspected) exposure to COVID-19; E11.649 Type 2 diabetes mellitus with hypoglycemia without coma; Z79.4 Long term (current) use of insulin; Z79.84 Long term (current) use of oral hypoglycemic drugs; E03.9 Hypothyroidism, unspecified; Z85.3 Personal history of malignant neoplasm of breast; Z86.73 Personal history of transient ischemic attack (TIA), and cerebral infarction without residual deficits; B35.1 Tinea unguium; R60.9 Edema, unspecified; K57.30 Diverticulosis of large intestine without perforation or abscess without bleeding; G89.29 Other chronic pain; D64.9 Anemia, unspecified; E78.5 Hyperlipidemia, unspecified; I10 Essential (primary) hypertension

== ENCOUNTER 2021-08-05 07:30 | Inpatient (IN) | payer OTHER ==
[~2021-08-05] VITALS: Ht 157.5 cm; Wt 45.4 kg
--- NOTE | ~2021-08-05 | EMS ---
[facility] [address] [place] [address] EMS Patient Care Report Name: GERBER FOSTER Room: [facility]#: [id number] Admission: 08/05/21 Attend Phys: Discharge: Date of : 40 Report #: [id number] THIS REPORT FOR: //name// Report Transmitted: 08/05/2021 07:17 EMS Care Summary [facility] [place] Incident [id number] @ 08/05/2021 06:50 Incident Location [address] [place] [address] Patient GERBER FOSTER Female, 80 Years 1940 Patient Address [address] [place] [address] Patient History Type 2 diabetes mellitus,Hypothyroidism, unspecified, Patient Allergies No known allergies, Chief Complaint Diabetes related symptoms Disposition Transported No Lights/[place] Dispatch Reason Diabetic Problem Transported To [facility] Narrative Dispatched to address noted for an unresponsive diabetic. [facility] en route and on scene at time noted. Arrived and found the patient in [facility]. Patient was with a staff member who stated that the patients blood glucose was low this morning. The staff member left to go get the nurse and we began our assessment. Patient was laying in bed and not responding well. Patient was clammy initially and appeared to have labored breathing at a rapid rate. Patient had audible [facility] [address] [place] [address] EMS Patient Care Report Name: GERBER FOSTER Room: [facility]#: [id number] Admission: 08/05/21 Attend Phys: Discharge: Date of : 40 Report #: [id number] rhonchi lung sounds noted and sounded congested. Patients vitals where obtained and her blood glucose was low as noted. Staff came back in and the nurse stated that she had given Glucogon at 0645 this morning with no change and called us. Nurse also stated she has only seen the patient for the last two days. Today she noticed her O2 saturation was low in the 70% and she does not normally wear O2. Patient was placed on O2 while I obtained an IV. IFD arrived to help with the IV and then we cleared them as we started to given Dextrose was noted. ECG was obtained at this time and the nurse stated the patient normally goes to [facility] for care. Patient was now moving around more and becoming more alert. Patient was moved over to stretcher and then moved to ambulance. We brought a hearing device with us and it was left with staff at the hospital. Once in ambulance, vitals where taken and blood glucose rechecked after dextrose finished. Patient was continued on O2 and sat up. patient had her eyes open and could follow some command but was still altered enough to disrupt an assessment and history. While en route, vitals where taken again as noted with minimal change. Radio report was given at time noted. Arrived and took patient to room 17. Patient was moved to bed and RN was given verbal report. RN signed for patient and patient care. END REPORT EMT-P Florentin Quiana Initial Vitals @06:59SpO2: 78, @07:02SpO2: 82, @07:05SpO2: 85, @07:07SpO2: 87, @07:17SpO2: 87, @07:17SpO2: 88, @07:22SpO2: 92, @07:23SpO2: 92, @07:07 @06:59P: 97,R: 22,BP: 183/94, @07:17P: 96,R: 22,BP: 181/77, @07:23P: 96,R: 22,BP: 181/90, @06:59GCS: 8, @07:17GCS: 11, @07:23GCS: 12, @06:56 @07:22 @PTAGlucose: 38, @07:00Glucose: 34, @07:20Glucose: 164, Assessments @06:56MENTAL:SKIN:HEENT:LUNG SOUNDS:ABDOMEN:PELVIS//GI:EXTREMITIES:PULSE:NEURO: [place] [address] EMS Patient Care Report Name: GERBER FOSTER [id number] Admission: 08/05/21 Attend Phys: Discharge: Date of : 40 Report #: [id number] Diabetic Hypoglycemia Procedures @07:01 Dextrose 10% - 25.000 Grams (gms) - Intravenous (IV) Response: Improved @06:59 Oxygen Complications: , Response: Unchanged @06:59 IV Therapy - cc () Site: Hand-Right Response: UnchangedSucceeded @07:07 12-Lead ECG Response: UnchangedSucceeded Timeline ONLINE 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 MARKETING MANAGER,BP: / M,PULSE: ,RR: R,SPO2: Ox,ETCO2: ,B,PAIN: ,GCS: , 06:49,Dispatch Notified 06:49,Psap Call 06:50,Dispatched 06:50,En Route 06:54,On Scene 06:56,At Patient 06:56,BP: / M,PULSE: ,RR: R,SPO2: Ox,ETCO2: ,BG: ,PAIN: ,GCS: , 06:59,Oxygen Complications: ,,Response: Unchanged 06:59,IV Therapy - cc Site: Hand-Right,Response: UnchangedSucceeded, 06:59,BP: / M,PULSE: ,RR: R,SPO2: 78 Ox,ETCO2: ,BG: ,PAIN: ,GCS: , 06:59,BP: 183/94 M,PULSE: 97,RR: 22 R,SPO2: Ox,ETCO2: ,BG: ,PAIN: ,GCS: , 06:59,BP: / M,PULSE: ,RR: R,SPO2: Ox,ETCO2: ,BG: ,PAIN: ,GCS: 8, 07:00,BP: / M,PULSE: ,RR: R,SPO2: Ox,ETCO2: ,B,PAIN: ,GCS: , 07:01,Dextrose 10% - 25.000 Grams (gms) - Intravenous (IV),Response: Improved 07:02,BP: / M,PULSE: ,RR: R,SPO2: 82 Ox,ETCO2: ,BG: ,PAIN: ,GCS: , 07:05,BP: / M,PULSE: ,RR: R,SPO2: 85 Ox,ETCO2: ,BG: ,PAIN: ,GCS: , 07:07,12-Lead ECG,Response: UnchangedSucceeded, 07:07,BP: / M,PULSE: ,RR: R,SPO2: 87 Ox,ETCO2: ,BG: ,PAIN: ,GCS: , 07:07,BP: / M,PULSE: ,RR: R,SPO2: Ox,ETCO2: ,BG: ,PAIN: ,GCS: , 07:17,BP: / M,PULSE: ,RR: R,SPO2: 87 Ox,ETCO2: ,BG: ,PAIN: ,GCS: , 07:17,BP: / M,PULSE: ,RR: R,SPO2: 88 Ox,ETCO2: ,BG: ,PAIN: ,GCS: , 07:17,BP: 181/77 M,PULSE: 96,RR: 22 R,SPO2: Ox,ETCO2: ,BG: ,PAIN: ,GCS: , 07:17,BP: / M,PULSE: ,RR: R,SPO2: Ox,ETCO2: ,BG: ,PAIN: ,GCS: 11, 07:20,BP: / M,PULSE: ,RR: R,SPO2: Ox,ETCO2: ,B,PAIN: ,GCS: , 07:20,Depart Scene 07:22,BP: / M,PULSE: ,RR: R,SPO2: 92 Ox,ETCO2: ,BG: ,PAIN: ,GCS: , 07:22,BP: / M,PULSE: ,RR: R,SPO2: Ox,ETCO2: ,BG: ,PAIN: ,GCS: , 07:23,BP: / M,PULSE: ,RR: R,SPO2: 92 Ox,ETCO2: ,BG: ,PAIN: ,GCS: , 07:23,BP: 181/90 M,PULSE: 96,RR: 22 R,SPO2: Ox,ETCO2: ,BG: ,PAIN: ,GCS: , 07:23,BP: / M,PULSE: ,RR: R,SPO2: Ox,ETCO2: ,BG: ,PAIN: ,GCS: 12, 07:27,At Destination 07:42,Call Closed Disclaimer v1.1 Copyright 2021 [employer] [address] [address] EMS Patient Care Report Name: GERBER FOSTER Room: [facility]#: [id number] Admission: 08/05/21 Attend Phys: Discharge: Date of : 40 Report #: [id number] This EMS Care Summary contains data elements from the applicable legal record (which may be displayed differently). It is designed to provide pertinent information for the following purposes: continuity of care, clinical quality, and state data reporting. The complete legal record is available to ED staff and administrators of the receiving hospital in [facility]'s Patient Tracker. All data is provided "as is."
[~2021-08-05 07:30] MED LIST changes: +CEFDINIR300 MG PO; +LIDODERM1 EACH TOP; +MIRALAX17 GM PO; +NYSTATIN100000 UNI SW&SWALLOW; +NYSTATIN15 G3 TOP; +PREDNISONE 10 M10 M1 PO
[2021-08-05 07:31] VITALS: BP 187/86
--- NOTE | 2021-08-05 08:00 | NUR ---
PT STRAIGHT CATH'D FOR URINE. PT ALSO HAD BM AND WAS CLEANED UP PRIORK TO STRIGHT CATH BEING DONE.
[2021-08-05 08:15] LABS: URINE BILIRUBIN NEGATIVE (Negative); URINE BLOOD TRACE (Negative); URINE CLARITY CLEAR; URINE COLOR YELLOW; URINE GLUCOSE-RANDOM 1+ (Negative); URINE KETONES NEGATIVE (Negative); URINE LEUKOCYTES-REFLEX NEGATIVE (Negative); URINE NITRITE-REFLEX NEGATIVE (Negative); URINE PROTEIN NEGATIVE (Negative); URINE SPECIFIC GRAVITY 1.025 (1.005-1.030); URINE UROBILINOGEN 0.2 E.U./dl (0.2-1.0)
[2021-08-05 08:51] LABS: ABSOLUTE BASOPHILS 0.1 thou/uL (0.0-0.2); ABSOLUTE LYMPHOCYTES 3.9 thou/uL (0.8-5.3); ABSOLUTE MONOCYTES 0.4 thou/uL (0.0-1.2); ABSOLUTE NEUTROPHILS 9.6 thou/uL (1.6-8.1); BASOPHILS 0.4 %; HEMATOCRIT 33.4 % (37.0-47.0); HEMOGLOBIN 10.4 gm/dL (12.0-15.0); MCH 29.7 pg (26.0-34.0); MCHC 31.2 g/dL (28.0-37.0); MCV 94.9 fL (80.0-100.0); MPV 9.4 fl. (7.2-11.1); NUCLEATED RBCS 0 /100WBC; PLATELET COUNT* 321 thou/uL (150-400); POLYS 68.6 %; RBC 3.52 mil/uL (4.20-5.00); RDW-CV 20.4 % (10.5-14.5)
[2021-08-05 09:11] LABS: CALCIUM 8.4 mg/dL (8.5-10.1); CREATININE 0.8 mg/dL (0.6-1.3); POTASSIUM 3.2 mmol/L (3.5-5.1)
[2021-08-05 09:22] LABS: ALBUMIN 1.8 g/dL (3.4-5.0); TOTAL BILIRUBIN 0.4 mg/dL (<0.1-1.0); TOTAL PROTEIN 5.9 g/dL (6.4-8.2)
--- NOTE | 2021-08-05 10:13 | EKG ---
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: VIPUL : 1940 Requested By: Anthony Long Order Number: [id number] MD: Maulik Davila Measurements Intervals [place] Rate: 105 P: 24 [place]: 187 QRS: -50 QRSD: 107 T: 141 QT: 359 QTc: 475 Interpretive Statements Sinus tachycardia Left axis LVH with secondary repolarization abnormality Anterior Q waves, possibly due to LVH Compared to ECG 07/22/2021 20:13:11 Early repolarization now present Sinus bradycardia no longer present Prolonged QT interval no longer present Electronically Signed On 08-05-2021 10:12:52 POLICY SERVICE COORDINATOR by Maulik Davila [email or web address] <ELECTRONICALLY SIGNED> By: Maulik Davila MD, [facility] 08/05/21 1012 Maulik Davila MD, [facility] /EPI
[2021-08-05 11:40] LABS: BE 5.1 mmol/L (-2 to +3); PCO2 33.3 mmHg (35.0-45.0); pH 7.539 (7.340-7.450)
[2021-08-05 11:43] LABS: PO2 139.5 mmHg (75.0-100.0)
[2021-08-05 12:00] VITALS: BP 134/60
--- NOTE | 2021-08-05 12:25 | NUR ---
pt to ct then floor room 214 for jose hernandez.
[2021-08-05 12:26] VITALS: BP 167/80
--- NOTE | 2021-08-05 12:27 | NUR ---
PT WITH HEADPHONES AND AMPLIFIER WENT TO ROOM 214.
--- NOTE | 2021-08-05 16:45 | NUR ---
PATIENT TRANSFERRED TO 105 PER DRS ORDERS BELONGINGS SENT REPORT GIVEN FAMILY NOTIFIED
[2021-08-05 17:00] VITALS: BP 142/76
--- NOTE | 2021-08-05 17:03 | NUR ---
AT 1650 PATIENT HERE FROM ROOM 214. NOW IN ROOM 103. NEGATIVE PRESSURE. PATIENT IS PALE. EYES CLOSED. 2 PATENT IV SITES. RIGHT HAND AND LEFT ARM. D5W INFUSING LEFT ARM AT 75ML PER HOUR. VITAL SIGNS RECORDED. OXYGEN ON 5 LITERS PER NC.
--- NOTE | 2021-08-05 18:11 | NUR ---
ASSUMED CARE OF PATIENT AT 1650. PATIENT IS PALE AND QUIET. IV SITES BOTH PATENT. IV SOLUTION INFUSING LEFT ARM AT 75ML PER HOUR. SR ON HOMICIDE SQUAD COMMANDING OFFICER. VITAL SIGNS STABLE. BLOOD SUGAR 146. THIS WAS 4TH BLOOD SUGAR THAT WAS ORDERED. LAB DRAWN AT 1715, AND RESULTS REVIEWED. PATIENT CTA SHOWED PNEUMONIA IN LUNGS. PATIENT ON O2 5 LITERS PER NC. PATIENT IS RESTING AT PRESENT. CONTINUE TO MONITOR.
--- NOTE | 2021-08-05 18:40 | NUR ---
PATIENT IS RESTING. DID NOT EAT ANY DINNER. WANTS TO REST.
[2021-08-05 20:30] VITALS: BP 113/57
[2021-08-06 00:03] VITALS: BP 149/80
[2021-08-06 04:12] VITALS: BP 171/82
--- NOTE | 2021-08-06 06:34 | NUR ---
PT AO X 1-2 AND VERY [place]. LUNGS DIMINISHED IN UPPERS AND BASES HAVE CRACKLES, SHE HAS BILATERAL DROP FOOT. BUTTOCKS HAVE SPECKLED RED RASH. VITALS HAVE BEEN STABLE WELL BLOOD SUGAR. IVF INFUSING PER ORDER. CALL LIGHT IN REACH AND BED ALARM ON FOR PT SAFETY. I SPOKE WITH HER SON OVERNIGHT FOR UPDATE.
[2021-08-06 08:00] VITALS: BP 144/62
[2021-08-06 10:38] LABS: HEMOGLOBIN 8.9 gm/dL (12.0-15.0); MCH 29.9 pg (26.0-34.0); MCV 93.5 fL (80.0-100.0); MPV 9.5 fl. (7.2-11.1); NUCLEATED RBCS 0 /100WBC; PLATELET COUNT* 281 thou/uL (150-400); RBC 2.99 mil/uL (4.20-5.00); RDW-CV 19.7 % (10.5-14.5); WBC 11.5 thou/uL (4.0-11.0)
[2021-08-06 10:42] LABS: CALCIUM 7.9 mg/dL (8.5-10.1); CREATININE 0.7 mg/dL (0.6-1.3)
[2021-08-06 11:34] LABS: ABSOLUTE LYMPHOCYTES 0.3 thou/uL (0.8-5.3); ABSOLUTE MONOCYTES 0.5 thou/uL (0.0-1.2); ABSOLUTE NEUTROPHILS 10.7 thou/uL (1.6-8.1)
[2021-08-06 11:35] LABS: PLATELET ESTIMATE ADEQUATE
[2021-08-06 11:58] VITALS: BP 135/66
--- NOTE | 2021-08-06 15:26 | NUR ---
INCONTINENT OF URINE. CHANGE DRAW SHEET AND PADS. PATIENT REPOSITION TO RIGHT SIDE. VERY RED AND EXCORIATED VAGINAL AREA THAT EXTENDS TO INNER BUTTOCKS.
[2021-08-06 16:00] VITALS: BP 138/66
[2021-08-06 22:30] VITALS: BP 154/71
[2021-08-07 03:58] LABS: HEMATOCRIT 28.2 % (37.0-47.0); HEMOGLOBIN 8.8 gm/dL (12.0-15.0); MCH 29.5 pg (26.0-34.0); MCHC 31.3 g/dL (28.0-37.0); MCV 94.3 fL (80.0-100.0); MPV 9.5 fl. (7.2-11.1); RBC 2.99 mil/uL (4.20-5.00); WBC 11.7 thou/uL (4.0-11.0)
[2021-08-07 04:00] VITALS: BP 144/68
[2021-08-07 04:22] LABS: ALBUMIN 1.6 g/dL (3.4-5.0); CALCIUM 7.8 mg/dL (8.5-10.1); CREATININE 0.7 mg/dL (0.6-1.3); MAGNESIUM 1.8 mg/dL (1.8-2.4); POTASSIUM 4.6 mmol/L (3.5-5.1); TOTAL BILIRUBIN 0.3 mg/dL (<0.1-1.0); TOTAL PROTEIN 5.1 g/dL (6.4-8.2)
--- NOTE | 2021-08-07 05:05 | NUR ---
PT AO X1-2. WITH THE NEG PRESSURE FAN AND HER DEFICIT OF HEARING IT IS HARD TO TELL IF SHE UNDERSTANDS OR CANT HEAR. PT MAKES NEEDS KNOWN WHEN IN THE ROOM AND FEEDS HER SELF. MAKES REQUESTS FOR PAIN MEDS AND TO READJUST THE BED. LUNGS DIMINISHED WITH OCCASIONAL COUGH, PT STILL ON 2L NC . PT INCONTINENT OF B/B WITH RED PRICKLY RASH IN SAMEER AREA. NYSTATIN OINT TO AREA AFTER SAMEER CARE DONE. IVF PER ORDER, CALL LIGHT IN REACH AND BED ALARM ON FOR PT SAFETY.
[2021-08-07 07:30] VITALS: BP 156/87
[2021-08-07 12:00] VITALS: BP 139/64
[2021-08-07 14:00] VITALS: BP 131/68
--- NOTE | 2021-08-07 16:30 | NUR ---
NO COMPLAINTS OF PAIN THIS SHIFT. ROLLER LEVELER TRACING SR. ELEVATED GLUCOSE THIS SHIFT, IVF WAS DC'D THIS AFTERNOON PER ORDERS. PATIENT REMAINS ON PO STEROIDS. UPDATE WAS GIVEN TO SON DEVAN. USING MICROPHONE TO COMMUNICATE WITH PATIENT. PATIENT INCONTINENT OF LARGE AMOUNTS OF URINE, NO BM NOTED THIS SHIFT. 02 3L NC.
--- NOTE | 2021-08-07 16:36 | NUR ---
CM ASSESSMENT ASSESSMENT COMPLETED WITH PT SON (DEVAN FOSTER [phone]).PT CAME TO [facility] FROM [place] ([phone]) AND PT SON IS OPEN TO PT RETURNING TO [place]. PT AT [place] AFTER EXPERIENCING A FALL AND PAIN THAT PT'S SON CAUSES HER TO CURL INTO A BALL AND HAVE LIMITED PARTICIPATION IN HER CARE/MOVEMENT. PT SON SAYS PT HAS POOR VISION AND HEARING AN CANNOT HEAR AT ALL WITHOUT HEARING DEVICE. PT'S SON SAID PT WILL PRETEND TO HEAR SO NOT TO DISSAPPOINT THOSE ASKING QUESTIONS AND SUCH WILL APPEAR THAT SHE IS NOT MAKING SENSE BECAUSE HER RESPONSES ARE NOT ON TOPIC. PRIOR TO FALL, PT WAS USING A WALKER IN THE HOME. PT PENDING PAIN MANAGEMENT TREATMENT AT [facility]. CM TO FOLLOW. WHEN CLEARED, PT ABLE TO RETURN TO [place]. CM TO FOLLOW.
[2021-08-07 20:00] VITALS: BP 125/72
[2021-08-08 00:32] VITALS: BP 170/77
[2021-08-08 04:23] LABS: HEMATOCRIT 28.4 % (37.0-47.0); HEMOGLOBIN 9.2 gm/dL (12.0-15.0); MCH 29.7 pg (26.0-34.0); MCHC 32.2 g/dL (28.0-37.0); MCV 92.1 fL (80.0-100.0); MPV 9.3 fl. (7.2-11.1); RBC 3.09 mil/uL (4.20-5.00); RDW-CV 19.4 % (10.5-14.5); WBC 18.8 thou/uL (4.0-11.0)
[2021-08-08 04:26] VITALS: BP 160/83
[2021-08-08 04:51] LABS: ALBUMIN 1.7 g/dL (3.4-5.0); CREATININE 0.7 mg/dL (0.6-1.3); MAGNESIUM 1.5 mg/dL (1.8-2.4); POTASSIUM 4.2 mmol/L (3.5-5.1); TOTAL BILIRUBIN 0.4 mg/dL (<0.1-1.0); TOTAL PROTEIN 5.1 g/dL (6.4-8.2)
[2021-08-08 10:15] VITALS: BP 142/82
[2021-08-08 12:00] VITALS: BP 111/75
--- NOTE | 2021-08-08 15:11 | NUR ---
CM FOLLOWUP PT NOT MED CLEAR AND PENDING CHEST XRAY. PT TO RETURN TO [facility] UPON MED CLEARANCE. CM TO FOLLOW.
[2021-08-08 16:00] VITALS: BP 113/69
[2021-08-08 20:00] VITALS: BP 113/76
[2021-08-09 00:18] VITALS: BP 107/70
[2021-08-09 04:20] VITALS: BP 117/72
[2021-08-09 05:49] LABS: HEMATOCRIT 35.2 % (37.0-47.0); HEMOGLOBIN 11.1 gm/dL (12.0-15.0); MCH 29.4 pg (26.0-34.0); MCHC 31.6 g/dL (28.0-37.0); MPV 8.9 fl. (7.2-11.1); RBC 3.79 mil/uL (4.20-5.00); WBC 12.6 thou/uL (4.0-11.0)
[2021-08-09 06:01] LABS: CALCIUM 7.7 mg/dL (8.5-10.1); CREATININE 0.7 mg/dL (0.6-1.3)
[2021-08-09] MEDS ORDERED: DOXYCYCLINE 10100 M2 PO (11:42)
[2021-08-09] MEDS ORDERED: DEXAMETHASONE1 MG PO (11:42)
[2021-08-09] MEDS ORDERED: VITAMIN D3250 MC1 PO (11:42)
[2021-08-09 12:32] VITALS: BP 104/66
[2021-08-09 16:00] VITALS: BP 124/67
--- NOTE | 2021-08-09 16:36 | NUR ---
CM FOLLOWUP PT PENDING ONCOLOGY. PT TO DC BACK TO [place] ([phone]) ON 08/10/21. CM TO FOLLOW FOR DC NEEDS.
--- NOTE | 2021-08-09 19:19 | NUR ---
PATIENT CARE FROM 0700 TO 1900. PATIENT IS QUIET AND HARD OF HEARING. DOES SPEAK. HAS HEADPHONES ON EARS. SR ON COUNTY ADMINISTRATOR. PATIENT REPOSITIONED EVERY 2 HOURS. DOES HELP WITH TURNING. INCONTINENT OF URINE. CHANGED SEVERAL TIMES TODAY. PATIENT ISTO GO TO [facility] UNIT SOON.
[2021-08-09 20:00] VITALS: BP 118/69
[2021-08-10 00:51] VITALS: BP 144/80
[2021-08-10 05:06] VITALS: BP 154/84
[2021-08-10 08:00] VITALS: BP 157/79
[2021-08-10 12:26] VITALS: BP 149/74
--- NOTE | 2021-08-10 14:30 | NUR ---
patient is sleeping most of the day. oxygen 3 liters per nc. rt did check her o2 sat, but unable to ambulate patient. patient will be going to [place] this afternoon. will call report to facility.
--- NOTE | 2021-08-10 15:00 | NUR ---
report given to aminata hernandez at [facility]. all belongings will be sent with patient. await transportation to facility. should be here soon.
--- NOTE | 2021-08-10 15:57 | NUR ---
CM FOLLOWUP PT MARYURI GAMEZ FOR DC TO [place] ([phone]) WITH TRANSPORT PROVIDED BY [facility] ([phone]). PT SON INFORMED. CM ATTEMPTED TO SCHEDULE ONCOLOGY AND ENDOCRINE APPOINTMENTS, BUT WAS ONLY ABLE TO LEAVE MESSAGES WITH SCHEDULING SERVICE. ONCOLOGY DR. JEFFREY - [phone] LAI - [phone]
--- NOTE | 2021-08-10 16:23 | NUR ---
EMS HERE TO TAKE PATIENT TO FACILITY. PATIENT SLEEPING, BUT AROUSABLE. OXYGEN 3 LITERS PER NC. BELONGINGS AND ALL PAPERWORK SENT WITH EMS.
== END 2021-08-10 16:00 | DRG 177 ==
LOC: M.ERS 07:30 → M.TBA-ER 08:30 → M.ORTHSURG 08:30 → M.2W 12:24 → M.ORTHSURG 16:38
PROVIDERS: Family Medicine; ADMIT Internal Medicine; ATTEND Internal Medicine
PROC: XW033E5 Introduction of Remdesivir Anti-infective into Peripheral Vein, Percutaneous Approach, New Technology Group 5 (ICD-10-PCS; principal; 2021-08-05)
DX: U07.1 COVID-19 (principal); G93.41 Metabolic encephalopathy; J12.82 Pneumonia due to coronavirus disease 2019; J96.01 Acute respiratory failure with hypoxia; E11.649 Type 2 diabetes mellitus with hypoglycemia without coma; I10 Essential (primary) hypertension; J45.909 Unspecified asthma, uncomplicated; E03.9 Hypothyroidism, unspecified; Z85.3 Personal history of malignant neoplasm of breast; E78.5 Hyperlipidemia, unspecified; Z86.73 Personal history of transient ischemic attack (TIA), and cerebral infarction without residual deficits